=== PATIENT | female | born 1980 | race Caucasian/White ===

== ENCOUNTER 2016-08-25 02:46 | Inpatient (IN) | payer OTHER ==
[~2016-08-25] VITALS: Ht 180.3 cm; Wt 65.6 kg
[2016-08-25 04:35] VITALS: Ht 180.3 cm; Wt 65.6 kg
[2016-08-25 04:43] VITALS: BP 134/92; RESP 20
[2016-08-25] MEDS ORDERED: morphine 2 MG INJ IV PRN (05:30)
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
[2016-08-25] MEDS ORDERED: METOCLOPRAMIDE 10 MG INJ IV PRN (06:30)
[2016-08-25] MEDS ORDERED: HYDROmorphONE 1 MG/ML SYG IV PRN (06:30)
[2016-08-25] MEDS ORDERED: NACL 0.9% 3 ML SYG IV SCH ×2 (06:30)
[2016-08-25 08:05] LABS: ADD SCAN DIFF NO
[2016-08-25 08:11] LABS: BASOPHIL # 0.1 10^3/ul (0.0-0.1); BASOPHILS % 0.9 % (0.0-2.0); EOSINOPHILS # 0.2 10^3/ul (0.0-0.5); EOSINOPHILS % 3.6 % (0.0-7.0); HEMATOCRIT 39.3 % (37.0-47.0); HEMOGLOBIN 12.7 g/dl (12.0-16.0); LYMPHOCYTES # 2.1 10^3/ul (0.8-2.9); LYMPHOCYTES % 34.9 % (15.0-51.0); MEAN CORPUSCULAR HEMOGLOBIN 29.9 pg (29.0-33.0); MEAN CORPUSCULAR HGB CONC 32.3 g/dl (32.0-37.0); MEAN CORPUSCULAR VOLUME 92.5 fl (82.0-101.0); MEAN PLATELET VOLUME 8.7 fl (7.4-10.4); MONOCYTE # 0.7 10^3/ul (0.3-0.9); MONOCYTES % 12.3 % (0.0-11.0); NEUTROPHIL # 2.8 10^3/ul (1.6-7.5); PLATELET COUNT 278 10^3/UL (140-415); RED BLOOD COUNT 4.25 10^6/ul (4.20-5.40); RED CELL DISTRIBUTION WIDTH 12.9 % (11.5-14.5); WHITE BLOOD COUNT 5.9 10^3/ul (4.8-10.8)
[2016-08-25 08:13] VITALS: BP 142/94; RESP 16
[2016-08-25 08:22] LABS: ALBUMIN 3.8 g/dl (3.3-4.9)
[2016-08-25 08:23] LABS: INR 0.96; POTASSIUM 3.6 mmol/L (3.5-5.1); PROTIME 12.8 Sec (12.2-14.2)
[2016-08-25 08:25] LABS: ALBUMIN/GLOBULIN RATIO 1.46; BILIRUBIN,INDIRECT 0.2 mg/dl (0-1.1); BILIRUBIN,TOTAL 0.2 mg/dl (0.2-1.3); CREATININE 0.7 mg/dl (0.44-1.00); TOTAL PROTEIN 6.4 g/dl (6.1-8.1)
[2016-08-25 08:26] LABS: CALCIUM 8.6 mg/dl (8.4-10.2)
[2016-08-25] MEDS ORDERED: FAMOTIDINE 20 MG INJ IV SCH (09:00)
[2016-08-25] MEDS: morphine 4 MG/ML VIAL IV PRN ×2 (11:19→15:48)
--- NOTE | 2016-08-25 13:09 | PDOCDIS ---
Discharge Instructions DIAGNOSIS Discharge Diagnosis: rib trauma CONDITION Patient Condition: Good HOME CARE INSTRUCTIONS: Diet Instructions: Regular ACTIVITY: Activity Restrictions: Slowly Increase Activity FOLLOW UP/APPOINTMENTS Appointments primary care SCHOOL/WORK RELEASE May return to School/Work on: Aug 30, 2016 JHONY JOHNSTON MD, [facility] Aug 25, 2016 13:09
== END 2016-08-25 17:15 | disposition home or self-care (01) | DRG 816 ==
LOC: MS1 04:20
PROVIDERS: ADMIT Family Medicine; ATTEND Family Medicine
DX: S36.031A Moderate laceration of spleen, initial encounter (principal); F17.200 Nicotine dependence, unspecified, uncomplicated; W10.9XXA Fall (on) (from) unspecified stairs and steps, initial encounter; Y92.009 Unspecified place in unspecified non-institutional (private) residence as the place of occurrence of the external cause
CPT/HCPCS: 80053; 85025; 85610; 86850; 86900; 86901; J2270

== ENCOUNTER 2016-09-27 03:28 | Inpatient (IN) | payer OTHER ==
[~2016-09-27] VITALS: Ht 180.3 cm; Wt 80.4 kg
[2016-09-27 05:47] VITALS: BP 121/69; RESP 18
[2016-09-27] MEDS ORDERED: ACETAMINOPHEN 325 MG TAB PO PRN ×2 (06:30→08:00)
[2016-09-27 06:34] VITALS: Ht 180.3 cm; Wt 80.4 kg
[2016-09-27 07:52] VITALS: BP 117/66; RESP 20
[2016-09-27] MEDS ORDERED: NACL 0.9% 3 ML SYG IV SCH (08:00)
[2016-09-27] MEDS ORDERED: METOCLOPRAMIDE 10 MG INJ IV PRN (08:00)
[2016-09-27] MEDS ORDERED: HYDROCODONE/APAP (5/325) TAB PO PRN (08:00)
--- NOTE | 2016-09-27 08:09 | HP ---
Date/Time of Note Date/Time of Note DATE: 09/27/16 TIME: 07:40 Assessment/Plan Lines/Catheters IV Catheter Type (from [facility]rsg): Saline Lock Assessment/Plan Assessment/Plan 1) Pneumonia, Community Acquired - ADMIT to floor - IV Antibiotics - Incentive Spirometer - DuoNeb Treatments every 4 hours - Activity as Tolerated HPI/ROS Admit Date/Time Admit Date/Time Sep 27, 2016 at 05:34 Hx of Present Illness Transfer from [place] due to Insurance reasons. ROS General: Admits: Denies: Fever, Chills, Poor Appetite, Generalized Body Aches Eyes: Admits: Denies: Blurry Vision, Double Vision HENT: Admits: Denies: Ear Pain/Pressure, Runny/Stuffy Nose, Sore Throat Cardiovascular: Admits: Denies: Chest Pain, Palpitations, Leg Swelling Pulmonary: Admits: Denies: Cough, Wheeze, Shortness of Breath Gastrointestinal: Admits: Denies: Abdominal Pain, Nausea, Vomiting, Diarrhea, Blood in Stool, Black-Colored Stool Urogenital: Admits: Denies: Burning with Urination, Urinary Frequency, Blood in Urine Musculoskeletal: Admits: Denies: Joint Pain, Joint Swelling, Muscle Pain Neurological: Admits: Denies: Headache, Dizziness, Numbness, Tingling, Shooting Pains Integumentary: Admits: Denies: Rash, Itch Endocrine: Admits: Denies: Excessive Thirst, Excessive Hunger, Intolerant to Cold , Intolerant to Heat Psychiatric: Admits: Denies: Anxiety, Depression PMH/Family/Social Social History Smoking Status: Current some day smoker Exam/Review of Systems Vital Signs Vitals Vital Signs Date Time Temp Pulse Resp B/P Pulse Ox O2 Delivery O2 Flow Rate FiO2 09/27/16 05:47 98.3 81 18 121/69 96 Exam Exam General: Eyes: Sclera White, EOMI HENT: Normocephalic/Atraumatic, External Ears/Nose Normal, Moist Mucus Membranes Neck: Supple, Trachea Midline Cardiovascular: Normal Rate, Regular Rhythm, Normal S1 and S2, No Murmur, No Extra Sounds. Radial pulse +2/4. No pedal Edema. Pulmonary: Clear to Auscultation Bilaterally, Normal Respiratory Effort, No Rales, Rhonchi or Wheezes Gastrointestinal: Normoactive Bowel Sounds, Soft, Non-Tender/Non-Distended, No Hepatosplenomegaly Appreciated, No Pulsatile Masses Urogenital: Deferred Musculoskeletal: Normal Muscle Bulk and Tone Neurological: CN II - XII Grossly Intact, Non-Focal, Speech Normal Integumentary: Normal Moisture and Temperature, Good Turgor, No Jaundice, No Rash Lymphatic: No Cervical Lymphadenopathy Psychiatric: Appropriate Mood and Affect, Good Eye Contact Medications Medications Current Medications Acetaminophen (Tylenol Tab) 650 mg Q4H PRN PO PAIN AND OR ELEVATED TEMP; Start 09/27/16 at 06:30 Ondansetron HCl (Zofran Inj) 4 mg Q6H PRN IV NAUSEA AND/OR VOMITING; Start at 06:30 ROBEL ROBLES DO Sep 27, 2016 08:09
[2016-09-27 08:20] LABS: ADD SCAN DIFF NO
[2016-09-27 08:42] LABS: BASOPHILS % 0.3 % (0.0-2.0); EOSINOPHILS # 0.3 10^3/ul (0.0-0.5); EOSINOPHILS % 2.5 % (0.0-7.0); HEMATOCRIT 33.5 % (37.0-47.0); HEMOGLOBIN 11.2 g/dl (12.0-16.0); LYMPHOCYTES # 1.8 10^3/ul (0.8-2.9); LYMPHOCYTES % 18.1 % (15.0-51.0); MEAN CORPUSCULAR HEMOGLOBIN 30.3 pg (29.0-33.0); MEAN CORPUSCULAR HGB CONC 33.4 g/dl (32.0-37.0); MEAN CORPUSCULAR VOLUME 90.5 fl (82.0-101.0); MEAN PLATELET VOLUME 8.6 fl (7.4-10.4); MONOCYTES % 10.4 % (0.0-11.0); NEUTROPHIL # 6.7 10^3/ul (1.6-7.5); NEUTROPHILS % 68.1 % (39.0-77.0); PLATELET COUNT 309 10^3/UL (140-415); RED CELL DISTRIBUTION WIDTH 12.8 % (11.5-14.5); WHITE BLOOD COUNT 9.8 10^3/ul (4.8-10.8)
[2016-09-27] MEDS: ALBUTEROL/IPRATROPIUM (NEB) 3 ML AMP NEB SCH ×4 (08:48→20:20)
[2016-09-27 08:58] LABS: ALBUMIN 3.1 g/dl (3.3-4.9); ALBUMIN/GLOBULIN RATIO 1.1; CALCIUM 8.2 mg/dl (8.4-10.2); CREATININE 0.64 mg/dl (0.44-1.00); POTASSIUM 3.4 mmol/L (3.5-5.1); TOTAL PROTEIN 5.9 g/dl (6.1-8.1)
[2016-09-27] MEDS: GUAIFENESIN/CODEINE 5ML CUP PO SCH ×4 (09:01→20:45)
[2016-09-27] MEDS: FAMOTIDINE 20 MG TAB PO SCH ×2 (09:01→20:44)
[2016-09-27] MEDS: CEFTRIAXONE 1 GM/50 ML (PMX) 50 ML IVPB SCH (09:02)
[2016-09-27] MEDS: AZITHROMYCIN 500MG/NS (PMX) 250 ML IV SCH (09:02)
[2016-09-27 09:25] LABS: ALBUMIN 3.1 g/dl (3.3-4.9)
[2016-09-27 09:27] LABS: BILIRUBIN,INDIRECT 0.2 mg/dl (0-1.1); BILIRUBIN,TOTAL 0.2 mg/dl (0.2-1.3); TOTAL PROTEIN 5.9 g/dl (6.1-8.1)
[2016-09-27] MEDS: HYDROCODONE/APAP (5/325) TAB PO PRN ×2 (12:00→19:47)
[2016-09-27 19:00] VITALS: BP 138/81; RESP 20
[2016-09-27 22:44] LABS: BARBITURATES Negative (NEGATIVE); BENZODIAZEPINES Negative (NEGATIVE); CANNABINOIDS Negative (NEGATIVE); COCAINE Negative (NEGATIVE); OPIATES Positive (NEGATIVE)
[2016-09-28] MEDS: GUAIFENESIN/CODEINE 5ML CUP PO SCH ×6 (01:03→22:01)
[2016-09-28] MEDS: ALBUTEROL/IPRATROPIUM (NEB) 3 ML AMP NEB SCH ×6 (01:36→21:00)
[2016-09-28] MEDS: HYDROCODONE/APAP (5/325) TAB PO PRN ×2 (05:44→20:15)
[2016-09-28 06:09] LABS: ADD SCAN DIFF NO
[2016-09-28 06:28] LABS: CALCIUM 8.7 mg/dl (8.4-10.2); CREATININE 0.59 mg/dl (0.44-1.00); POTASSIUM 4.2 mmol/L (3.5-5.1)
[2016-09-28 06:38] LABS: BASOPHILS % 0.3 % (0.0-2.0); EOSINOPHILS # 0.3 10^3/ul (0.0-0.5); EOSINOPHILS % 3.4 % (0.0-7.0); HEMOGLOBIN 11.1 g/dl (12.0-16.0); LYMPHOCYTES # 1.6 10^3/ul (0.8-2.9); LYMPHOCYTES % 22.1 % (15.0-51.0); MEAN CORPUSCULAR HEMOGLOBIN 30.1 pg (29.0-33.0); MEAN CORPUSCULAR HGB CONC 32.6 g/dl (32.0-37.0); MEAN CORPUSCULAR VOLUME 92.1 fl (82.0-101.0); MEAN PLATELET VOLUME 8.7 fl (7.4-10.4); MONOCYTE # 0.7 10^3/ul (0.3-0.9); MONOCYTES % 9.3 % (0.0-11.0); NEUTROPHIL # 4.7 10^3/ul (1.6-7.5); NEUTROPHILS % 64.4 % (39.0-77.0); PLATELET COUNT 353 10^3/UL (140-415); RED BLOOD COUNT 3.69 10^6/ul (4.20-5.40); RED CELL DISTRIBUTION WIDTH 13.1 % (11.5-14.5); WHITE BLOOD COUNT 7.3 10^3/ul (4.8-10.8)
[2016-09-28 07:26] VITALS: BP 123/73; RESP 18
[2016-09-28 07:58] LABS: CHOL/HDL RATIO 2.8 RATIO
[2016-09-28] MEDS: AZITHROMYCIN 500MG/NS (PMX) 250 ML IV SCH (08:12)
[2016-09-28] MEDS: FAMOTIDINE 20 MG TAB PO SCH ×2 (08:12→20:15)
[2016-09-28] MEDS: CEFTRIAXONE 1 GM/50 ML (PMX) 50 ML IVPB SCH (08:12)
[2016-09-28 08:21] LABS: THYROID STIMULATING HORMONE 2.81 MIU/L (0.465-4.680)
--- NOTE | 2016-09-28 08:50 | RADRPT ---
PROCEDURE: XR Chest. CLINICAL INDICATION: Infiltrates TECHNIQUE: Chest AP portable. COMPARISON: No comparison available. FINDINGS: The mediastinal structures are unremarkable. The heart is normal in size and configuration. The pu lmonary vascularity is normal. There are normal lung volumes. There is a mild right perihilar patc hy consolidation. The pleural spaces are unremarkable. The axial skeleton is unremarkable. IMPRESSION: Mild right perihilar patchy consolidation (query pneumonia) RPTAT: HGDB .Basil Gonzales MD, Date Time Electronically viewed and signed by .Basil Gonzales MD, on 09/28/2016 08:49 .B/
--- NOTE | 2016-09-28 10:04 | PN ---
Date/Time of Note Date/Time of Note DATE: 09/28/16 TIME: 10:01 Assessment/Plan VTE Prophylaxis VTE Prophylaxis Intervention: SCD's Lines/Catheters IV Catheter Type (from [facility]): Saline Lock Assessment/Plan Chief Complaint/Hosp Course Assessment and plan 1. Community-acquired pneumonia. Continue antibiotics. Encourage incentive spirometer. Check sputum culture. Antitussives for cough. 2. Bronchospasm with suspect early COPD. Patient with noted history of cigarette smoking half a pack per day for 10 years duration. Continue on bronchodilators. Start on steroid. Noted with wheezing today. Await for clinical improvement. Smoking cessation advised 3. History of cigarette smoking. Cessation advised. DVT prophylaxis: SCDs Disposition and plan: Check sputum culture. Continue antibiotics. Continue on bronchodilators. Await for clinical improvement of pneumonia. Discussed plan of care with Dr. Ceja Problems: Subjective 24 Hr Interval Summary Free Text/Dictation Reports little bit worse breathing and also some wheezing. States she has some productive cough. Exam/Review of Systems Vital Signs Vitals Vital Signs Date Time Temp Pulse Resp B/P Pulse Ox O2 Delivery O2 Flow Rate FiO2 09/28/16 08:05 78 20 97 21 09/28/16 07:26 98.2 123/73 Intake and Output 09/27/16 09/27/16 09/28/16 15:00 23:00 07:00 Intake Total 300 ml 1440 ml 1180 ml Output Total 0 ml 600 ml Balance 300 ml 1440 ml 580 ml Exam Constitutional: alert, oriented Psych: nl mood/affect Head: normocephalic Eyes: nl conjunctiva Neck: non-tender, supple Respiratory: congested cough, wheezing Cardiovascular: regular rate and rhythm Gastrointestinal: non-tender, soft Musculoskeletal: nl extremities to inspection Neurological: [employer] II-XII intact, nl mental status, nl speech Skin: nl turgor Results Result Diagram: 09/28/16 0525 09/28/16 0525 Results 24 hrs Laboratory Tests Test 09/27/16 21:30 09/28/16 05:25 Urine Test NEGATIVE Urine Opiates Screen Positive Urine Barbiturates Negative Urine Amphetamines Screen Negative Urine Benzodiazepines Screen Negative Urine Cocaine Screen Negative Urine Cannabinoids Negative White Blood Count 7.3 # Red Blood Count 3.69 L Hemoglobin 11.1 L Hematocrit 34.0 L Mean Corpuscular Volume 92.1 Mean Corpuscular Hemoglobin 30.1 Mean Corpuscular Hemoglobin Concent 32.6 Red Cell Distribution Width 13.1 Platelet Count 353 Mean Platelet Volume 8.7 Neutrophils % 64.4 Lymphocytes % 22.1 Monocytes % 9.3 Eosinophils % 3.4 Basophils % 0.3 Nucleated Red Blood Cells % 0.0 Neutrophils # 4.7 Lymphocytes # 1.6 Monocytes # 0.7 Eosinophils # 0.3 Basophils # 0.0 Nucleated Red Blood Cells # 0.0 Sodium Level 137 Potassium Level 4.2 Chloride Level 104 Carbon Dioxide Level 28 Anion Gap 9 Blood Urea Nitrogen 7 Creatinine 0.59 Glucose Level 101 Hemoglobin A1c 5.2 Calcium Level 8.7 Phosphorus Level 4.0 Magnesium Level 2.0 Triglycerides Level 48 Cholesterol Level 83 L LDL Cholesterol, Calculated 44 HDL Cholesterol 29 L Cholesterol/HDL Ratio 2.8 Thyroid Stimulating Hormone (TSH) 2.810 Free Thyroxine 1.00 Medications Medications Current Medications Ondansetron HCl 4 mg 4 mg Q6H PRN IV NAUSEA AND/OR VOMITING; Start 09/27/16 at 06:30 Ceftriaxone Sodium 50 ml @ 100 mls/hr Q24H IVPB Last administered on 08:12; Admin Dose 100 MLS/HR; Start 09/27/16 at 08:00 Azithromycin (Zithromax 500mg/ NS (Pmx)) 250 ml @ 250 mls/hr Q24H IV Last administered on 09/28/16 08:12; Admin Dose 250 MLS/HR; Start 09/27/16 at 08:00 Ondansetron HCl (Zofran Tab) 4 mg Q6H PRN PO NAUSEA AND/OR VOMITING; Start at 08:00 Metoclopramide HCl (Reglan) 10 mg Q6H PRN IV NAUSEA AND/OR VOMITING; Start at 08:00 Acetaminophen (Tylenol Tab) 650 mg Q6H PRN PO PAIN LEVEL 1-3 OR FEVER; Start at 08:00 Acetaminophen/ Hydrocodone Bitart ([place] (5/325)) 1 tab Q6H PRN PO MODERATE PAIN LEVEL 4-6; Start 09/27/16 at 08:00 Acetaminophen/ Hydrocodone Bitart ([place] (5/325)) 2 tab Q6H PRN PO SEVERE PAIN LEVEL 7-10 Last administered on 09/28/16 05:44; Admin Dose 2 TAB; Start at 08:00 Famotidine (Pepcid) 20 mg Q12 PO Last administered on 09/28/16 08:12; Admin Dose 20 MG; Start 09/27/16 at 09:00 Guaifenesin/ Codeine Phosphate (Robitussin Ac Liquid Cup) 10 ml Q4 PO Last administered on 09/28/16 08:15; Admin Dose 10 ML; Start 09/27/16 at 09:00; Stop 09/28/16 at 21:01 Guaifenesin/ Codeine Phosphate (Robitussin Ac Liquid Cup) 10 ml Q4H PRN PO COUGH; Start 09/28/16 at 22:00 Salmeterol Xinafoate/ Fluticasone (Advair 250/50 Diskus) 1 inh BID INH ; Start 09/28/16 at 10:30 Ketorolac Tromethamine (Toradol) 30 mg Q6 IV ; Start 09/28/16 at 12:00; Stop at 11:59 Morphine Sulfate (morphine) 2 mg Q4H PRN IV pain; Start 09/28/16 at 10:00 Methylprednisolone Sodium Succinate 40 mg 40 mg Q8 IV ; Start 09/28/16 at 14:00 Sodium Chloride (NS) 1,000 ml @ 75 mls/hr [id number] IV ; Start 09/28/16 at 10:00 DELORIS GONZALEZ Sep 28, 2016 10:04
[2016-09-28] MEDS: SALMETEROL/FLUTICASONE 250/50 INHA INH SCH ×2 (10:40→20:16)
[2016-09-28] MEDS: SOD CHLORIDE 0.9% 1,000 ML IV SCH ×2 (10:41→23:57)
[2016-09-28] MEDS: KETOROLAC 30 MG INJ IV SCH ×3 (12:39→23:57)
[2016-09-28] MEDS: ACETYLCYSTEINE 20% 4 ML VIAL NEB SCH ×3 (12:49→21:01)
[2016-09-28] MEDS: METHYLPREDNISOLONE 40 MG INJ IV SCH ×2 (14:57→22:01)
[2016-09-28 20:19] VITALS: BP 130/73; RESP 19
[2016-09-28] MEDS ORDERED: GUAIFENESIN/CODEINE 5ML CUP PO PRN (22:00)
[2016-09-29] MEDS: ACETYLCYSTEINE 20% 4 ML VIAL NEB SCH ×7 (01:00→21:16)
[2016-09-29] MEDS: ALBUTEROL/IPRATROPIUM (NEB) 3 ML AMP NEB SCH ×6 (01:55→21:18)
[2016-09-29] MEDS: KETOROLAC 30 MG INJ IV SCH ×3 (05:39→18:27)
[2016-09-29] MEDS: METHYLPREDNISOLONE 40 MG INJ IV SCH ×3 (05:39→21:52)
[2016-09-29] MEDS: ONDANSETRON 4 MG INJ IV PRN (05:39)
[2016-09-29 07:46] VITALS: BP 119/68; RESP 18
[2016-09-29] MEDS: morphine 2 MG INJ IV PRN ×4 (08:38→21:51)
[2016-09-29] MEDS: SALMETEROL/FLUTICASONE 250/50 INHA INH SCH ×2 (08:40→20:27)
[2016-09-29] MEDS: AZITHROMYCIN 500MG/NS (PMX) 250 ML IV SCH (08:40)
[2016-09-29] MEDS: FAMOTIDINE 20 MG TAB PO SCH ×2 (08:40→20:27)
[2016-09-29] MEDS: CEFTRIAXONE 1 GM/50 ML (PMX) 50 ML IVPB SCH (08:40)
--- NOTE | 2016-09-29 10:05 | PN ---
Date/Time of Note Date/Time of Note DATE: 09/29/16 TIME: 09:59 Assessment/Plan VTE Prophylaxis VTE Prophylaxis Intervention: SCD's Lines/Catheters [facility] Saline Lock Assessment/Plan Chief Complaint/Hosp Course Assessment and plan 1. Community-acquired pneumonia. Continue antibiotics. Encourage incentive spirometer. sputum culture pending. Antitussives for cough. 2. Bronchospasm with suspect early COPD. Patient with noted history of cigarette smoking half a pack per day for 10 years duration. Continue on bronchodilators. Continue steroid for now.. Smoking cessation was advised. Still with some shortness of breath. Rosin Barrel Filler consulted 3. History of cigarette smoking. Cessation advised. DVT prophylaxis: SCDs Disposition and plan: We will get pulmonology consultation. Continue with breathing treatments. Antitussives adjusted. Await for clinical improvement Discussed plan of care with Dr. Ceja Problems: Subjective 24 Hr Interval Summary Free Text/Dictation Patient still reports having moderate cough. Reports having pain on chest, likely pleuritic Exam/Review of Systems Vital Signs Vitals Vital Signs Date Time Temp Pulse Resp B/P Pulse Ox O2 Delivery O2 Flow Rate FiO2 09/29/16 08:15 103 16 96 21 09/29/16 07:46 98.7 119/68 Intake and Output 09/28/16 09/28/16 09/29/16 15:00 23:00 07:00 Intake Total 2040 ml 850 ml Output Total 2800 ml Balance -760 ml 850 ml Exam Constitutional: alert, oriented Psych: nl mood/affect Head: normocephalic Neck: non-tender, supple, No jvd Respiratory: congested cough, wheezing (little) Cardiovascular: regular rate and rhythm Gastrointestinal: non-tender, soft Musculoskeletal: nl extremities to inspection Neurological: WHISTLE [place]K II-XII intact, nl mental status, nl speech Skin: nl turgor, No rash or lesions Results Result Diagram: 09/28/1652409/28/16524 Medications Medications Current Medications Ondansetron HCl 4 mg 4 mg Q6H PRN IV NAUSEA AND/OR VOMITING Last administered on 09/29/16 05:39; Admin Dose 4 MG; Start 09/27/16 at 06:30 Ceftriaxone Sodium 50 ml @ 100 mls/hr Q24H IVPB Last administered on 08:40; Admin Dose 100 MLS/HR; Start 09/27/16 at 08:00 Azithromycin (Zithromax 500mg/ NS (Pmx)) 250 ml @ 250 mls/hr Q24H IV Last administered on 09/29/16 08:40; Admin Dose 250 MLS/HR; Start 09/27/16 at 08:00 Ondansetron HCl (Zofran Tab) 4 mg Q6H PRN PO NAUSEA AND/OR VOMITING; Start at 08:00 Metoclopramide HCl (Reglan) 10 mg Q6H PRN IV NAUSEA AND/OR VOMITING; Start at 08:00 Acetaminophen (Tylenol Tab) 650 mg Q6H PRN PO PAIN LEVEL 1-3 OR FEVER; Start at 08:00 Acetaminophen/ Hydrocodone Bitart ([place] (5/325)) 1 tab Q6H PRN PO MODERATE PAIN LEVEL 4-6; Start 09/27/16 at 08:00 Acetaminophen/ Hydrocodone Bitart ([place] (5/325)) 2 tab Q6H PRN PO SEVERE PAIN LEVEL 7-10 Last administered on 09/28/16 20:15; Admin Dose 2 TAB; Start at 08:00 Famotidine (Pepcid) 20 mg Q12 PO Last administered on 09/29/16 08:40; Admin Dose 20 MG; Start 09/27/16 at 09:00 Guaifenesin/ Codeine Phosphate (Robitussin Ac Liquid Cup) 10 ml Q4H PRN PO COUGH; Start 09/28/16 at 22:00 Salmeterol Xinafoate/ Fluticasone (Advair 250/50 Diskus) 1 inh BID INH Last administered on 09/29/16 08:40; Admin Dose 1 INH; Start 09/28/16 at 10:30 Ketorolac Tromethamine (Toradol) 30 mg Q6 IV Last administered on 09/29/16 05: 39; Admin Dose 30 MG; Start 09/28/16 at 12:00; Stop 10/01/16 at 11:59 Morphine Sulfate (morphine) 2 mg Q4H PRN IV pain Last administered on 08:38; Admin Dose 2 MG; Start 09/28/16 at 10:00 Methylprednisolone Sodium Succinate 40 mg 40 mg Q8 IV Last administered on 09/29 05:39; Admin Dose 40 MG; Start 09/28/16 at 14:00 Sodium Chloride (NS) 1,000 ml @ 75 mls/hr [id number] IV Last administered on 09/28 23:57; Admin Dose 75 MLS/HR; Start 09/28/16 at 10:00 Benzonatate (Tessalon) 200 mg TID PO ; Start 09/29/16 at 13:00 DELORIS GONZALEZ Sep 29, 2016 10:05
[2016-09-29] MEDS ORDERED: MAGNESIUM HYDROXIDE 30ML CUP PO PRN (10:30)
[2016-09-29] MEDS: SENNA TAB PO SCH (10:31)
[2016-09-29] MEDS: HYDROCODONE/APAP (5/325) TAB PO PRN ×2 (10:35→20:27)
[2016-09-29] MEDS: BENZONATATE 100 MG CAP PO SCH ×2 (12:21→20:27)
[2016-09-29] MEDS: SOD CHLORIDE 0.9% 1,000 ML IV SCH ×2 (12:40→15:18)
--- NOTE | 2016-09-29 17:04 | CONS ---
DATE OF ADMISSION: 09/27/2016 DATE OF CONSULTATION: 09/29/2016 TYPE OF CONSULTATION: Pulmonary REASON FOR CONSULT: Shortness of breath. Thank you, Dr. Long, for this consultation. HISTORY OF PRESENT ILLNESS: This is a pleasant 36-year-old lady with history of lupus, comes in wit h several week history of increasing cough, shortness of breath, congestion, failed several rounds o f outpatient antibiotics. She states she has a history of recurrent and prolonged lung infections r equiring long courses of antibiotics. No history of lung disease from her lupus disorder. She has a positive tobacco history of half pack per day x10 years, other than that, no significant past medi raul history. PAST MEDICAL HISTORY: As above, includes lupus erythematosus and recurrent bronchitis. MEDICATIONS: Per chart. ALLERGIES: NONE. SOCIAL HISTORY: Positive tobacco history. Occasional alcohol. No history of drug use. FAMILY HISTORY: Noncontributory. REVIEW OF SYSTEMS: A 12-point review of systems was negative other than that mentioned above. PHYSICAL EXAMINATION: GENERAL: Well-nourished, well-developed lady, appears comfortable at rest, no acute distress. VITAL SIGNS: Currently afebrile, pulse is 100, blood pressure 119/68, O2 saturation 97% on room air . NECK: Supple. No JVD or lymphadenopathy. CARDIAC: S1, S2, no added sounds or murmurs. CHEST: Diminished air entry bilaterally. ABDOMEN: Soft, nontender. No guarding or rebound. EXTREMITIES: No cyanosis, clubbing, edema. NEUROLOGIC: Generalized weakness. LABORATORY DATA: White count 10.7, hemoglobin 11.1, platelets of 353. BUN 7, creatinine 0.59. Chest x-ray was reviewed, shows right perihilar consolidation. IMPRESSION: 1. Probable community-acquired pneumonia. 2. History of lupus. 3. 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 RECOMMENDATIONS: 1. Continue steroids. 2. Check IgE and IgE specific aspergillosis. 3. Continue current antibiotics. 4. Continue DVT and GI prophylaxis. Dictated By: JHONY LUNA/ELIER Conf#: [id number] DID#: [id number]
[2016-09-29 19:00] VITALS: BP 134/74; RESP 20
[2016-09-30] MEDS: KETOROLAC 30 MG INJ IV SCH ×5 (00:09→23:53)
[2016-09-30] MEDS: ACETYLCYSTEINE 20% 4 ML VIAL NEB SCH ×6 (01:24→20:12)
[2016-09-30] MEDS: ALBUTEROL/IPRATROPIUM (NEB) 3 ML AMP NEB SCH ×3 (01:24→09:00)
[2016-09-30] MEDS: morphine 2 MG INJ IV PRN ×4 (02:16→21:06)
[2016-09-30] MEDS: SOD CHLORIDE 0.9% 1,000 ML IV SCH ×2 (03:24→18:53)
[2016-09-30] MEDS: METHYLPREDNISOLONE 40 MG INJ IV SCH (05:42)
[2016-09-30] MEDS: ONDANSETRON 4 MG INJ IV PRN (05:49)
[2016-09-30] MEDS: HYDROCODONE/APAP (5/325) TAB PO PRN ×3 (05:49→18:53)
[2016-09-30 07:00] LABS: ADD SCAN DIFF NO
[2016-09-30 07:12] LABS: BASOPHILS % 0.1 % (0.0-2.0); HEMATOCRIT 35.2 % (37.0-47.0); HEMOGLOBIN 11.4 g/dl (12.0-16.0); LYMPHOCYTES # 0.9 10^3/ul (0.8-2.9); LYMPHOCYTES % 4.8 % (15.0-51.0); MEAN CORPUSCULAR HEMOGLOBIN 29.9 pg (29.0-33.0); MEAN CORPUSCULAR HGB CONC 32.4 g/dl (32.0-37.0); MEAN CORPUSCULAR VOLUME 92.4 fl (82.0-101.0); MEAN PLATELET VOLUME 8.6 fl (7.4-10.4); MONOCYTE # 0.8 10^3/ul (0.3-0.9); MONOCYTES % 4.3 % (0.0-11.0); NEUTROPHILS % 89.5 % (39.0-77.0); PLATELET COUNT 468 10^3/UL (140-415); RED BLOOD COUNT 3.81 10^6/ul (4.20-5.40); RED CELL DISTRIBUTION WIDTH 13.2 % (11.5-14.5)
[2016-09-30 07:24] VITALS: BP 127/72; RESP 20
[2016-09-30 07:26] LABS: POTASSIUM 4.6 mmol/L (3.5-5.1)
[2016-09-30 07:28] LABS: CREATININE 0.53 mg/dl (0.44-1.00)
[2016-09-30 07:29] LABS: CALCIUM 9.1 mg/dl (8.4-10.2)
[2016-09-30] MEDS: CEFTRIAXONE 1 GM/50 ML (PMX) 50 ML IVPB SCH (07:47)
[2016-09-30] MEDS: FAMOTIDINE 20 MG TAB PO SCH ×2 (08:28→20:48)
[2016-09-30] MEDS: SALMETEROL/FLUTICASONE 250/50 INHA INH SCH ×2 (08:28→20:48)
[2016-09-30] MEDS: AZITHROMYCIN 500MG/NS (PMX) 250 ML IV SCH (08:28)
[2016-09-30] MEDS: SENNA TAB PO SCH (08:28)
[2016-09-30] MEDS: BENZONATATE 100 MG CAP PO SCH ×3 (11:19→20:48)
--- NOTE | 2016-09-30 12:59 | CONS ---
Date/Time of Note Date/Time of Note DATE: 09/30/16 TIME: 12:58 Consult Date/Type/Reason Admit Date/Time Sep 27, 2016 at 05:34 Initial Consult Date Type of Consultation: pulmonary Subjective Patient feels a little better today less short of breath Objective Vital Signs Date Time Temp Pulse Resp B/P Pulse Ox O2 Delivery O2 Flow Rate FiO2 09/30/16 07:24 98.5 103 20 127/72 98 09/30/16 01:36 21 Intake and Output 09/29/16 09/29/16 09/30/16 15:00 23:00 07:00 Intake Total 2945 ml 1445 ml Balance 2945 ml 1445 ml Exam PHYSICAL EXAMINATION: GENERAL: Well-nourished, well-developed lady, appears comfortable at rest, no acute distress. VITAL SIGNS: NECK: Supple. No JVD or lymphadenopathy. CARDIAC: S1, S2, no added sounds or murmurs. CHEST: Diminished air entry bilaterally. ABDOMEN: Soft, nontender. No guarding or rebound. EXTREMITIES: No cyanosis, clubbing, edema. NEUROLOGIC: Generalized weakness. Results/Medications Result Diagram: 09/30/16 0610 09/30/16 0610 Results 24 hrs Laboratory Tests Test 09/30/16 06:10 White Blood Count 19.0 #H Red Blood Count 3.81 L Hemoglobin 11.4 L Hematocrit 35.2 L Mean Corpuscular Volume 92.4 Mean Corpuscular Hemoglobin 29.9 Mean Corpuscular Hemoglobin Concent 32.4 Red Cell Distribution Width 13.2 Platelet Count 468 #H Mean Platelet Volume 8.6 Neutrophils % 89.5 H Lymphocytes % 4.8 L Monocytes % 4.3 Eosinophils % 0.0 Basophils % 0.1 Nucleated Red Blood Cells % 0.0 Neutrophils # 17.0 H Lymphocytes # 0.9 Monocytes # 0.8 Eosinophils # 0.0 Basophils # 0.0 Nucleated Red Blood Cells # 0.0 Sodium Level 139 Potassium Level 4.6 Chloride Level 102 Carbon Dioxide Level 28 Anion Gap 14 Blood Urea Nitrogen 8 Creatinine 0.53 Glucose Level 128 Calcium Level 9.1 Medications Current Medications Ondansetron HCl 4 mg 4 mg Q6H PRN IV NAUSEA AND/OR VOMITING Last administered on 09/30/16t 05:49; Admin Dose 4 MG; Start 09/27/16 at 06:30 Ceftriaxone Sodium 50 ml @ 100 mls/hr Q24H IVPB Last administered on 07:47; Admin Dose 100 MLS/HR; Start 09/27/16 at 08:00 Azithromycin (Zithromax 500mg/ NS (Pmx)) 250 ml @ 250 mls/hr Q24H IV Last administered on 09/30/16 08:28; Admin Dose 250 MLS/HR; Start 09/27/16 at 08:00 Ondansetron HCl (Zofran Tab) 4 mg Q6H PRN PO NAUSEA AND/OR VOMITING; Start at 08:00 Metoclopramide HCl (Reglan) 10 mg Q6H PRN IV NAUSEA AND/OR VOMITING; Start at 08:00 Acetaminophen (Tylenol Tab) 650 mg Q6H PRN PO PAIN LEVEL 1-3 OR FEVER; Start at 08:00 Acetaminophen/ Hydrocodone Bitart ([place] (5/325)) 1 tab Q6H PRN PO MODERATE PAIN LEVEL 4-6; Start 09/27/16 at 08:00 Acetaminophen/ Hydrocodone Bitart ([place] (5/325)) 2 tab Q6H PRN PO SEVERE PAIN LEVEL 7-10 Last administered on 09/30/16 12:08; Admin Dose 2 TAB; Start at 08:00 Famotidine (Pepcid) 20 mg Q12 PO Last administered on 09/30/16 08:28; Admin Dose 20 MG; Start 09/27/16 at 09:00 Guaifenesin/ Codeine Phosphate (Robitussin Ac Liquid Cup) 10 ml Q4H PRN PO COUGH; Start 09/28/16 at 22:00 Salmeterol Xinafoate/ Fluticasone (Advair 250/50 Diskus) 1 inh BID INH Last administered on 09/30/16 08:28; Admin Dose 1 INH; Start 09/28/16 at 10:30 Ketorolac Tromethamine (Toradol) 30 mg Q6 IV Last administered on 09/30/16 11: 20; Admin Dose 30 MG; Start 09/28/16 at 12:00; Stop 10/01/16 at 11:59 Morphine Sulfate (morphine) 2 mg Q4H PRN IV pain Last administered on 07:48; Admin Dose 2 MG; Start 09/28/16 at 10:00 Methylprednisolone Sodium Succinate 40 mg 40 mg Q8 IV Last administered on 09/30 05:42; Admin Dose 40 MG; Start 09/28/16 at 14:00 Sodium Chloride (NS) 1,000 ml @ 75 mls/hr [id number] IV Last administered on 09/30 03:24; Admin Dose 75 MLS/HR; Start 09/28/16 at 10:00 Benzonatate (Tessalon) 200 mg TID PO Last administered on 09/30/16 11:19; Admin Dose 200 MG; Start 09/29/16 at 13:00 Senna (Senokot) 2 tab DAILY PO Last administered on 09/30/16 08:28; Admin Dose 2 TAB; Start 09/29/16 at 10:30 Magnesium Hydroxide (Milk Of Mag) 30 ml BID PRN PO CONSTIPATION; Start at 10:30 Assessment/Plan Chief Complaint/Hosp Course IMPRESSION: 1. Probable community-acquired pneumonia. 2. History of lupus. 3. 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 RECOMMENDATIONS: 1. Continue steroids. Decrease dose today 2. Check IgE and IgE specific aspergillosis. Results pending 3. Continue current antibiotics. 4. Continue DVT and GI prophylaxis. Anticipate discharge tomorrow Problems: JHONY JOHNSTON MD, [facility] Sep 30, 2016 12:59
[2016-09-30] MEDS: ONDANSETRON 4 MG TAB PO PRN (13:47)
--- NOTE | 2016-09-30 16:08 | PN ---
Date/Time of Note Date/Time of Note DATE: 09/30/16 TIME: 16:06 Assessment/Plan VTE Prophylaxis VTE Prophylaxis Intervention: ambulation Lines/Catheters IV C[facility]ter Type (from [facility]): Peripheral IV Assessment/Plan Chief Complaint/Hosp Course Assessment and plan 1. Community-acquired pneumonia. Continue antibiotics. Encourage incentive spirometer. Noted with normal sputum culture. Follow-up on workup for Aspergillus per delivery room supervisor 2. Bronchospasm. Continue on steroid. Taper per delivery room supervisor. Follow-up recommendations. Appears to be improving 3. History of cigarette smoking. Cessation advised. DVT prophylaxis: SCDs Disposition and plan: Continue with breathing treatments and antibiotic therapy. Slowly improving. Follow-up with delivery room supervisor patient's. Discharge when medically stable Discussed plan of care with Dr. Ceja Problems: Subjective 24 Hr Interval Summary Free Text/Dictation Still with some difficulty breathing but better today. Still reports cough Exam/Review of Systems Vital Signs Vitals Vital Signs Date Time Temp Pulse Resp B/P Pulse Ox O2 Delivery O2 Flow Rate FiO2 09/30/16 07:24 98.5 103 20 127/72 98 09/30/16 01:36 21 Intake and Output 09/29/16 09/29/16 09/30/16 15:00 23:00 07:00 Intake Total 2945 ml 1445 ml Balance 2945 ml 1445 ml Exam Constitutional: alert, oriented Psych: nl mood/affect Head: normocephalic Neck: non-tender, supple Respiratory: congested cough Cardiovascular: other (regular rate tachycardic) Gastrointestinal: non-tender, soft Musculoskeletal: nl extremities to inspection Extremities: normal pulses Neurological: 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 intact, nl mental status, nl speech Skin: nl turgor, No rash or lesions Results Result Diagram: 09/30/16 0610 09/30/16 0610 Results 24 hrs Laboratory Tests Test 09/30/16 06:10 White Blood Count 19.0 #H Red Blood Count 3.81 L Hemoglobin 11.4 L Hematocrit 35.2 L Mean Corpuscular Volume 92.4 Mean Corpuscular Hemoglobin 29.9 Mean Corpuscular Hemoglobin Concent 32.4 Red Cell Distribution Width 13.2 Platelet Count 468 #H Mean Platelet Volume 8.6 Neutrophils % 89.5 H Lymphocytes % 4.8 L Monocytes % 4.3 Eosinophils % 0.0 Basophils % 0.1 Nucleated Red Blood Cells % 0.0 Neutrophils # 17.0 H Lymphocytes # 0.9 Monocytes # 0.8 Eosinophils # 0.0 Basophils # 0.0 Nucleated Red Blood Cells # 0.0 Sodium Level 139 Potassium Level 4.6 Chloride Level 102 Carbon Dioxide Level 28 Anion Gap 14 Blood Urea Nitrogen 8 Creatinine 0.53 Glucose Level 128 Calcium Level 9.1 Medications Medications Current Medications Ondansetron HCl 4 mg 4 mg Q6H PRN IV NAUSEA AND/OR VOMITING Last administered on 09/30/16 05:49; Admin Dose 4 MG; Start 09/27/16 at 06:30 Ceftriaxone Sodium 50 ml @ 100 mls/hr Q24H IVPB Last administered on 07:47; Admin Dose 100 MLS/HR; Start 09/27/16 at 08:00 Azithromycin (Zithromax 500mg/ NS (Pmx)) 250 ml @ 250 mls/hr Q24H IV Last administered on 09/30/16 08:28; Admin Dose 250 MLS/HR; Start 09/27/16 at 08:00 Ondansetron HCl (Zofran Tab) 4 mg Q6H PRN PO NAUSEA AND/OR VOMITING Last administered on 09/30/16 13:47; Admin Dose 4 MG; Start 09/27/16 at 08:00 Metoclopramide HCl (Reglan) 10 mg Q6H PRN IV NAUSEA AND/OR VOMITING; Start at 08:00 Acetaminophen (Tylenol Tab) 650 mg Q6H PRN PO PAIN LEVEL 1-3 OR FEVER; Start at 08:00 Acetaminophen/ Hydrocodone Bitart ([place] (5/325)) 1 tab Q6H PRN PO MODERATE PAIN LEVEL 4-6; Start 09/27/16 at 08:00 Acetaminophen/ Hydrocodone Bitart ([place] (5/325)) 2 tab Q6H PRN PO SEVERE PAIN LEVEL 7-10 Last administered on 09/30/16 12:08; Admin Dose 2 TAB; Start at 08:00 Famotidine (Pepcid) 20 mg Q12 PO Last administered on 09/30/16 08:28; Admin Dose 20 MG; Start 09/27/16 at 09:00 Guaifenesin/ Codeine Phosphate (Robitussin Ac Liquid Cup) 10 ml Q4H PRN PO COUGH; Start 09/28/16 at 22:00 Salmeterol Xinafoate/ Fluticasone (Advair 250/50 Diskus) 1 inh BID INH Last administered on 09/30/16 08:28; Admin Dose 1 INH; Start 09/28/16 at 10:30 Ketorolac Tromethamine (Toradol) 30 mg Q6 IV Last administered on 09/30/16 11: 20; Admin Dose 30 MG; Start 09/28/16 at 12:00; Stop 10/01/16 at 11:59 Morphine Sulfate 2 mg 2 mg Q4H PRN IV pain Last administered on 09/30/16 13:47 ; Admin Dose 2 MG; Start 09/28/16 at 10:00 Sodium Chloride (NS) 1,000 ml @ 75 mls/hr [id number] IV Last administered on 09/30 03:24; Admin Dose 75 MLS/HR; Start 09/28/16 at 10:00 Benzonatate (Tessalon) 200 mg TID PO Last administered on 09/30/16 11:19; Admin Dose 200 MG; Start 09/29/16 at 13:00 Senna (Senokot) 2 tab DAILY PO Last administered on 09/30/16 08:28; Admin Dose 2 TAB; Start 09/29/16 at 10:30 Magnesium Hydroxide (Milk Of Mag) 30 ml BID PRN PO CONSTIPATION; Start at 10:30 Methylprednisolone Sodium Succinate (Solu-Medrol) 40 mg DAILY IV ; Start at 09:00 DELORIS GONZALEZ Sep 30, 2016 16:08
[2016-09-30] MEDS: ALBUTEROL/IPRATROPIUM (NEB) 3 ML AMP NEB PRN ×2 (17:38→20:12)
[2016-09-30 19:27] VITALS: BP 133/84; RESP 16
[2016-10-01] MEDS: ACETYLCYSTEINE 20% 4 ML VIAL NEB SCH ×3 (01:00→08:35)
[2016-10-01] MEDS: KETOROLAC 30 MG INJ IV SCH (06:00)
[2016-10-01] MEDS: HYDROCODONE/APAP (5/325) TAB PO PRN ×2 (06:38→22:20)
[2016-10-01 07:52] VITALS: BP 144/94; RESP 18
[2016-10-01] MEDS: CEFTRIAXONE 1 GM/50 ML (PMX) 50 ML IVPB SCH (07:57)
[2016-10-01] MEDS: SOD CHLORIDE 0.9% 1,000 ML IV SCH ×2 (08:00→23:24)
[2016-10-01] MEDS: SENNA TAB PO SCH (08:28)
[2016-10-01] MEDS: BENZONATATE 100 MG CAP PO SCH ×3 (08:28→22:16)
[2016-10-01] MEDS: METHYLPREDNISOLONE 40 MG INJ IV SCH (08:28)
[2016-10-01] MEDS: FAMOTIDINE 20 MG TAB PO SCH ×2 (08:28→22:17)
[2016-10-01] MEDS: AZITHROMYCIN 500MG/NS (PMX) 250 ML IV SCH (08:28)
[2016-10-01] MEDS: SALMETEROL/FLUTICASONE 250/50 INHA INH SCH ×3 (08:33→21:00)
[2016-10-01] MEDS: ALBUTEROL/IPRATROPIUM (NEB) 3 ML AMP NEB PRN ×2 (08:35→20:06)
[2016-10-01] MEDS: morphine 2 MG INJ IV PRN ×2 (09:04→19:41)
[2016-10-01 10:09] LABS: ADD SCAN DIFF NO
[2016-10-01 10:17] LABS: BASOPHILS % 0.1 % (0.0-2.0); EOSINOPHILS # 0.1 10^3/ul (0.0-0.5); EOSINOPHILS % 0.6 % (0.0-7.0); HEMATOCRIT 33.8 % (37.0-47.0); LYMPHOCYTES # 2.2 10^3/ul (0.8-2.9); LYMPHOCYTES % 26.2 % (15.0-51.0); MEAN CORPUSCULAR HEMOGLOBIN 30.2 pg (29.0-33.0); MEAN CORPUSCULAR HGB CONC 32.5 g/dl (32.0-37.0); MEAN CORPUSCULAR VOLUME 92.9 fl (82.0-101.0); MEAN PLATELET VOLUME 8.3 fl (7.4-10.4); MONOCYTE # 0.9 10^3/ul (0.3-0.9); PLATELET COUNT 453 10^3/UL (140-415); RED BLOOD COUNT 3.64 10^6/ul (4.20-5.40); RED CELL DISTRIBUTION WIDTH 13.2 % (11.5-14.5); WHITE BLOOD COUNT 8.3 10^3/ul (4.8-10.8)
[2016-10-01 10:45] LABS: CALCIUM 8.5 mg/dl (8.4-10.2); CREATININE 0.64 mg/dl (0.44-1.00); POTASSIUM 4.1 mmol/L (3.5-5.1)
--- NOTE | 2016-10-01 14:28 | CONS ---
Date/Time of Note Date/Time of Note DATE: 10/01/16 TIME: 14:27 Consult Date/Type/Reason Admit Date/Time Sep 27, 2016 at 05:34 Type of Consultation: pulmonary Subjective Patient states she is having more difficulty breathing this morning. Increased congestion and increased wheezing. Objective Vital Signs Date Time Temp Pulse Resp B/P Pulse Ox O2 Delivery O2 Flow Rate FiO2 10/01/16 08:34 82 20 98 21 10/01/16 07:52 98.0 144/94 Intake and Output 09/30/16 09/30/16 10/01/16 15:00 23:00 07:00 Intake Total 2650 ml 1430 ml Output Total 1200 ml Balance 2650 ml 230 ml Exam PHYSICAL EXAMINATION: GENERAL: Well-nourished, well-developed lady, appears comfortable at rest, no acute distress. VITAL SIGNS: NECK: Supple. No JVD or lymphadenopathy. CARDIAC: S1, S2, no added sounds or murmurs. CHEST: Diminished air entry bilaterally. Few rales on the left base. ABDOMEN: Soft, nontender. No guarding or rebound. EXTREMITIES: No cyanosis, clubbing, edema. NEUROLOGIC: Generalized weakness. Results/Medications Result Diagram: 10/01/16 0937 10/01/16 0937 Results 24 hrs Laboratory Tests Test 10/01/16 09:37 White Blood Count 8.3 # Red Blood Count 3.64 L Hemoglobin 11.0 L Hematocrit 33.8 L Mean Corpuscular Volume 92.9 Mean Corpuscular Hemoglobin 30.2 Mean Corpuscular Hemoglobin Concent 32.5 Red Cell Distribution Width 13.2 Platelet Count 453 H Mean Platelet Volume 8.3 Neutrophils % 61.0 Lymphocytes % 26.2 Monocytes % 11.0 Eosinophils % 0.6 Basophils % 0.1 Nucleated Red Blood Cells % 0.0 Neutrophils # 5.0 Lymphocytes # 2.2 Monocytes # 0.9 Eosinophils # 0.1 Basophils # 0.0 Nucleated Red Blood Cells # 0.0 Sodium Level 138 Potassium Level 4.1 Chloride Level 105 Carbon Dioxide Level 28 Anion Gap 9 # Blood Urea Nitrogen 10 Creatinine 0.64 Glucose Level 91 Calcium Level 8.5 Medications Current Medications Ondansetron HCl 4 mg 4 mg Q6H PRN IV NAUSEA AND/OR VOMITING Last administered on 09/30/16t 05:49; Admin Dose 4 MG; Start 09/27/16 at 06:30 Ceftriaxone Sodium 50 ml @ 100 mls/hr Q24H IVPB Last administered on 07:57; Admin Dose 100 MLS/HR; Start 09/27/16 at 08:00 Azithromycin (Zithromax 500mg/ NS (Pmx)) 250 ml @ 250 mls/hr Q24H IV Last administered on 10/01/16 08:28; Admin Dose 250 MLS/HR; Start 09/27/16 at 08:00 Ondansetron HCl (Zofran Tab) 4 mg Q6H PRN PO NAUSEA AND/OR VOMITING Last administered on 09/30/16 13:47; Admin Dose 4 MG; Start 09/27/16 at 08:00 Metoclopramide HCl (Reglan) 10 mg Q6H PRN IV NAUSEA AND/OR VOMITING; Start at 08:00 Acetaminophen (Tylenol Tab) 650 mg Q6H PRN PO PAIN LEVEL 1-3 OR FEVER; Start at 08:00 Acetaminophen/ Hydrocodone Bitart ([place] (5/325)) 1 tab Q6H PRN PO MODERATE PAIN LEVEL 4-6; Start 09/27/16 at 08:00 Acetaminophen/ Hydrocodone Bitart ([place] (5/325)) 2 tab Q6H PRN PO SEVERE PAIN LEVEL 7-10 Last administered on 10/01/16 06:38; Admin Dose 2 TAB; Start at 08:00 Famotidine (Pepcid) 20 mg Q12 PO Last administered on 10/01/16 08:28; Admin Dose 20 MG; Start 09/27/16 at 09:00 Guaifenesin/ Codeine Phosphate (Robitussin Ac Liquid Cup) 10 ml Q4H PRN PO COUGH; Start 09/28/16 at 22:00 Salmeterol Xinafoate/ Fluticasone (Advair 250/50 Diskus) 1 inh BID INH Last administered on 09/30/16 20:48; Admin Dose 1 INH; Start 09/28/16 at 10:30 Morphine Sulfate 2 mg 2 mg Q4H PRN IV pain Last administered on 10/01/16 09:04 ; Admin Dose 2 MG; Start 09/28/16 at 10:00 Sodium Chloride (NS) 1,000 ml @ 75 mls/hr [id number] IV Last administered on 10/01 08:00; Admin Dose 75 MLS/HR; Start 09/28/16 at 10:00 Benzonatate (Tessalon) 200 mg TID PO Last administered on 10/01/16 13:27; Admin Dose 200 MG; Start 09/29/16 at 13:00 Senna (Senokot) 2 tab DAILY PO Last administered on 10/01/16 08:28; Admin Dose 2 TAB; Start 09/29/16 at 10:30 Magnesium Hydroxide (Milk Of Mag) 30 ml BID PRN PO CONSTIPATION; Start at 10:30 Methylprednisolone Sodium Succinate (Solu-Medrol) 40 mg DAILY IV Last administered on 10/01/16 08:28; Admin Dose 40 MG; Start 10/01/16 at 09:00 Assessment/Plan Chief Complaint/Hosp Course IMPRESSION: 1. Probable community-acquired pneumonia. 2. History of lupus. 3. 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 RECOMMENDATIONS: 1. Continue steroids. Decrease dose today 2. Check IgE and IgE specific aspergillosis. Results pending 3. Continue current antibiotics. 4. Continue DVT and GI prophylaxis. Repeat chest x-ray Problems: JHONY JOHNSTON MD, [facility] Oct 01, 2016 14:28
--- NOTE | 2016-10-01 15:13 | RADRPT ---
PROCEDURE: XR Chest. CLINICAL INDICATION: Shortness of breath. History of pneumonia TECHNIQUE: A single portable view of the chest was obtained. COMPARISON: 09/28/2016 FINDINGS: The cardiomediastinal silhouette is within normal limits. Resolution of the patchy air space disease in the right perihilar region is seen. The lungs and pleural spaces are clear. The soft tissues an d osseous structures are unremarkable. IMPRESSION: No acute cardiopulmonary disease with resolution of the right perihilar patchy air space disease. RPTAT: HPNM Physician Prosper Date Time Electronically viewed and signed by Physician Prosper on 10/01/2016 15:13 /
--- NOTE | 2016-10-01 15:38 | PN ---
Date/Time of Note Date/Time of Note DATE: 10/01/16 TIME: 15:36 Assessment/Plan VTE Prophylaxis VTE Prophylaxis Intervention: ambulation Lines/Catheters IV C[facility]ter Type (from [facility]): Peripheral IV Assessment/Plan Chief Complaint/Hosp Course Assessment and plan 1. Community-acquired pneumonia. Continue antibiotics. Encourage incentive spirometer. Noted with normal sputum culture. Recent x-ray showed resolution of pneumonia. 2. Bronchospasm, possible early COPD. Continue on steroid. 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 Await for clinical improvement. O2 as needed 3. History of cigarette smoking. Cessation advised. DVT prophylaxis: SCDs Disposition and plan: Chest x-ray better. Still noted with wheezing. Continue bronchodilator as. Await for clinical improvement. Discharge when medically stable and cleared by consultants Discussed plan of care with Dr. Ceja Problems: Subjective 24 Hr Interval Summary Free Text/Dictation With reported worse breathing. Anxious Exam/Review of Systems Vital Signs Vitals Vital Signs Date Time Temp Pulse Resp B/P Pulse Ox O2 Delivery O2 Flow Rate FiO2 10/01/16 08:34 82 20 98 21 10/01/16 07:52 98.0 144/94 Intake and Output 09/30/16 09/30/16 10/01/16 15:00 23:00 07:00 Intake Total 2650 ml 1430 ml Output Total 1200 ml Balance 2650 ml 230 ml Exam Constitutional: alert, oriented (anxious) Psych: anxiety Head: normocephalic Neck: non-tender, supple Respiratory: wheezing Cardiovascular: regular rate and rhythm Gastrointestinal: non-tender, soft Musculoskeletal: nl extremities to inspection Extremities: normal pulses Neurological: 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, nl mental status, nl speech Skin: nl turgor Results Result Diagram: 10/01/1637 10/01/16 0937 Results 24 hrs Laboratory Tests Test 10/01/16 09:37 White Blood Count 8.3 # Red Blood Count 3.64 L Hemoglobin 11.0 L Hematocrit 33.8 L Mean Corpuscular Volume 92.9 Mean Corpuscular Hemoglobin 30.2 Mean Corpuscular Hemoglobin Concent 32.5 Red Cell Distribution Width 13.2 Platelet Count 453 H Mean Platelet Volume 8.3 Neutrophils % 61.0 Lymphocytes % 26.2 Monocytes % 11.0 Eosinophils % 0.6 Basophils % 0.1 Nucleated Red Blood Cells % 0.0 Neutrophils # 5.0 Lymphocytes # 2.2 Monocytes # 0.9 Eosinophils # 0.1 Basophils # 0.0 Nucleated Red Blood Cells # 0.0 Sodium Level 138 Potassium Level 4.1 Chloride Level 105 Carbon Dioxide Level 28 Anion Gap 9 # Blood Urea Nitrogen 10 Creatinine 0.64 Glucose Level 91 Calcium Level 8.5 Medications Medications Current Medications Ondansetron HCl 4 mg 4 mg Q6H PRN IV NAUSEA AND/OR VOMITING Last administered on 09/30/16 05:49; Admin Dose 4 MG; Start 09/27/16 at 06:30 Ceftriaxone Sodium 50 ml @ 100 mls/hr Q24H IVPB Last administered on 07:57; Admin Dose 100 MLS/HR; Start 09/27/16 at 08:00 Azithromycin (Zithromax 500mg/ NS (Pmx)) 250 ml @ 250 mls/hr Q24H IV Last administered on 10/01/16 08:28; Admin Dose 250 MLS/HR; Start 09/27/16 at 08:00 Ondansetron HCl (Zofran Tab) 4 mg Q6H PRN PO NAUSEA AND/OR VOMITING Last administered on 09/30/16 13:47; Admin Dose 4 MG; Start 09/27/16 at 08:00 Metoclopramide HCl (Reglan) 10 mg Q6H PRN IV NAUSEA AND/OR VOMITING; Start at 08:00 Acetaminophen (Tylenol Tab) 650 mg Q6H PRN PO PAIN LEVEL 1-3 OR FEVER; Start at 08:00 Acetaminophen/ Hydrocodone Bitart ([place] (5/325)) 1 tab Q6H PRN PO MODERATE PAIN LEVEL 4-6; Start 09/27/16 at 08:00 Acetaminophen/ Hydrocodone Bitart ([place] (5/325)) 2 tab Q6H PRN PO SEVERE PAIN LEVEL 7-10 Last administered on 10/01/16 06:38; Admin Dose 2 TAB; Start at 08:00 Famotidine (Pepcid) 20 mg Q12 PO Last administered on 10/01/16 08:28; Admin Dose 20 MG; Start 09/27/16 at 09:00 Guaifenesin/ Codeine Phosphate (Robitussin Ac Liquid Cup) 10 ml Q4H PRN PO COUGH; Start 09/28/16 at 22:00 Salmeterol Xinafoate/ Fluticasone (Advair 250/50 Diskus) 1 inh BID INH Last administered on 09/30/16 20:48; Admin Dose 1 INH; Start 09/28/16 at 10:30 Morphine Sulfate 2 mg 2 mg Q4H PRN IV pain Last administered on 10/01/16 09:04 ; Admin Dose 2 MG; Start 09/28/16 at 10:00 Sodium Chloride (NS) 1,000 ml @ 75 mls/hr [id number] IV Last administered on 10/01 08:00; Admin Dose 75 MLS/HR; Start 09/28/16 at 10:00 Benzonatate (Tessalon) 200 mg TID PO Last administered on 10/01/16 13:27; Admin Dose 200 MG; Start 09/29/16 at 13:00 Senna (Senokot) 2 tab DAILY PO Last administered on 10/01/16 08:28; Admin Dose 2 TAB; Start 09/29/16 at 10:30 Magnesium Hydroxide (Milk Of Mag) 30 ml BID PRN PO CONSTIPATION; Start at 10:30 Methylprednisolone Sodium Succinate (Solu-Medrol) 40 mg DAILY IV Last administered on 10/01/16 08:28; Admin Dose 40 MG; Start 10/01/16 at 09:00 DELORIS GONZALEZ Oct 01, 2016 15:38
[2016-10-02] MEDS: HYDROCODONE/APAP (5/325) TAB PO PRN (05:56)
[2016-10-02] MEDS: morphine 2 MG INJ IV PRN (05:57)
[2016-10-02 06:17] LABS: ADD SCAN DIFF NO
[2016-10-02 06:40] LABS: BASOPHILS % 0.2 % (0.0-2.0); EOSINOPHILS # 0.1 10^3/ul (0.0-0.5); HEMATOCRIT 35.8 % (37.0-47.0); HEMOGLOBIN 11.6 g/dl (12.0-16.0); LYMPHOCYTES # 2.8 10^3/ul (0.8-2.9); LYMPHOCYTES % 28.3 % (15.0-51.0); MEAN CORPUSCULAR HEMOGLOBIN 29.4 pg (29.0-33.0); MEAN CORPUSCULAR HGB CONC 32.4 g/dl (32.0-37.0); MEAN CORPUSCULAR VOLUME 90.9 fl (82.0-101.0); MEAN PLATELET VOLUME 8.3 fl (7.4-10.4); MONOCYTES % 10.3 % (0.0-11.0); NEUTROPHIL # 5.8 10^3/ul (1.6-7.5); NEUTROPHILS % 59.2 % (39.0-77.0); PLATELET COUNT 485 10^3/UL (140-415); RED BLOOD COUNT 3.94 10^6/ul (4.20-5.40); RED CELL DISTRIBUTION WIDTH 13.2 % (11.5-14.5); WHITE BLOOD COUNT 9.8 10^3/ul (4.8-10.8)
[2016-10-02 06:44] LABS: POTASSIUM 3.5 mmol/L (3.5-5.1)
[2016-10-02 06:46] LABS: CREATININE 0.63 mg/dl (0.44-1.00)
[2016-10-02 06:47] LABS: CALCIUM 8.5 mg/dl (8.4-10.2)
[2016-10-02 07:37] VITALS: BP 137/92; RESP 18
[2016-10-02] MEDS: BENZONATATE 100 MG CAP PO SCH ×3 (09:00→21:43)
[2016-10-02] MEDS: SENNA TAB PO SCH (09:01)
[2016-10-02] MEDS: FAMOTIDINE 20 MG TAB PO SCH ×2 (09:02→21:43)
[2016-10-02] MEDS: METHYLPREDNISOLONE 40 MG INJ IV SCH ×3 (09:02→19:34)
[2016-10-02] MEDS: SALMETEROL/FLUTICASONE 250/50 INHA INH SCH ×2 (09:02→21:43)
[2016-10-02] MEDS: AZITHROMYCIN 500MG/NS (PMX) 250 ML IV SCH (09:02)
[2016-10-02] MEDS: CEFTRIAXONE 1 GM/50 ML (PMX) 50 ML IVPB SCH (10:57)
--- NOTE | 2016-10-02 11:41 | CONS ---
Date/Time of Note Date/Time of Note DATE: 10/02/16 TIME: 11:39 Assessment/Plan Assessment/Plan Additional Assessment/Plan Assessment and recommendations; 1. Patient admitted with acute bronchitis with wheezing. 2. Sinusitis. 3. History of SLE. 4. Current smoker. Change Solu-Medrol dosing back to 40 mg every 6 hours, add Claritin-D every 12 hours scheduled, change DuoNeb to every 6 hours scheduled, add Mucinex 600 mg twice daily. Continue other medications. Patient was counseled to quit smoking Consultation Date/Type/Reason Admit Date/Time Sep 27, 2016 at 05:34 Initial Consult Date Type of Consultation: pulmonary 24 HR Interval Summary Free Text/Dictation Patient still complaining of significant chest congestion wheezing and cough. Also complains of sinus congestion and postnasal drip. Denies any fever chills , complains of very scant yellow sputum production. General exam; young lady, awake alert currently in no distress. Exam/Review of Systems Vital Signs Vitals Vital Signs Date Time Temp Pulse Resp B/P Pulse Ox O2 Delivery O2 Flow Rate FiO2 10/02/16 07:37 98.2 81 18 137/92 97 10/02/16 07:28 2.0 10/01/16 20:20 Nasal Cannula 10/01/16 08:34 21 Intake and Output 10/01/16 10/01/16 10/02/16 15:00 23:00 07:00 Intake Total 550 ml 2445 ml 900 ml Balance 550 ml 2445 ml 900 ml Exam HEENT exam is; supple neck, there is bilateral maxillary sinus tenderness. Pharynx is clear. Nasal congestion is present as well. Pupils are equal reactive to light bilaterally. No neck masses. No thyromegaly. Chest examination; bilateral expiratory wheezing. S1-S2 audible, no murmurs. Regular rhythm. Abdomen; benign. Extremity exam is; no peripheral edema. OPTIONS ADVISOR examination; no focal deficit. Results Result Diagram: 10/02/16 0549 10/02/16 0549 Results 24 hrs Laboratory Tests Test 10/02/16 05:49 White Blood Count 9.8 Red Blood Count 3.94 L Hemoglobin 11.6 L Hematocrit 35.8 L Mean Corpuscular Volume 90.9 Mean Corpuscular Hemoglobin 29.4 Mean Corpuscular Hemoglobin Concent 32.4 Red Cell Distribution Width 13.2 Platelet Count 485 H Mean Platelet Volume 8.3 Neutrophils % 59.2 Lymphocytes % 28.3 Monocytes % 10.3 Eosinophils % 1.0 Basophils % 0.2 Nucleated Red Blood Cells % 0.0 Neutrophils # 5.8 Lymphocytes # 2.8 Monocytes # 1.0 H Eosinophils # 0.1 Basophils # 0.0 Nucleated Red Blood Cells # 0.0 Sodium Level 137 Potassium Level 3.5 Chloride Level 102 Carbon Dioxide Level 25 Anion Gap 14 Blood Urea Nitrogen 11 Creatinine 0.63 Glucose Level 86 Calcium Level 8.5 Medications Medications Current Medications Ondansetron HCl 4 mg 4 mg Q6H PRN IV NAUSEA AND/OR VOMITING Last administered on 09/30/16 05:49; Admin Dose 4 MG; Start 09/27/16 at 06:30 Ceftriaxone Sodium 50 ml @ 100 mls/hr Q24H IVPB Last administered on 10:57; Admin Dose 100 MLS/HR; Start 09/27/16 at 08:00 Azithromycin (Zithromax 500mg/ NS (Pmx)) 250 ml @ 250 mls/hr Q24H IV Last administered on 10/02/16 09:02; Admin Dose 250 MLS/HR; Start 09/27/16 at 08:00 Ondansetron HCl (Zofran Tab) 4 mg Q6H PRN PO NAUSEA AND/OR VOMITING Last administered on 09/30/16 13:47; Admin Dose 4 MG; Start 09/27/16 at 08:00 Metoclopramide HCl (Reglan) 10 mg Q6H PRN IV NAUSEA AND/OR VOMITING; Start at 08:00 Acetaminophen (Tylenol Tab) 650 mg Q6H PRN PO PAIN LEVEL 1-3 OR FEVER; Start at 08:00 Acetaminophen/ Hydrocodone Bitart ([place] (5/325)) 1 tab Q6H PRN PO MODERATE PAIN LEVEL 4-6; Start 09/27/16 at 08:00 Acetaminophen/ Hydrocodone Bitart ([place] (5/325)) 2 tab Q6H PRN PO SEVERE PAIN LEVEL 7-10 Last administered on 10/02/16 05:56; Admin Dose 2 TAB; Start at 08:00 Famotidine (Pepcid) 20 mg Q12 PO Last administered on 10/02/16 09:02; Admin Dose 20 MG; Start 09/27/16 at 09:00 Guaifenesin/ Codeine Phosphate (Robitussin Ac Liquid Cup) 10 ml Q4H PRN PO COUGH Last administered on 10/02/16 02:28; Admin Dose 10 ML; Start 09/28/16 at 22:00 Salmeterol Xinafoate/ Fluticasone (Advair 250/50 Diskus) 1 inh BID INH Last administered on 10/02/16 09:02; Admin Dose 1 INH; Start 09/28/16 at 10:30 Morphine Sulfate 2 mg 2 mg Q4H PRN IV pain Last administered on 10/02/16 05:57 ; Admin Dose 2 MG; Start 09/28/16 at 10:00 Sodium Chloride (NS) 1,000 ml @ 75 mls/hr [id number] IV Last administered on 10/01 23:24; Admin Dose 75 MLS/HR; Start 09/28/16 at 10:00 Benzonatate (Tessalon) 200 mg TID PO Last administered on 10/01/16 22:16; Admin Dose 200 MG; Start 09/29/16 at 13:00 Senna (Senokot) 2 tab DAILY PO Last administered on 10/02/16 09:01; Admin Dose 2 TAB; Start 09/29/16 at 10:30 Magnesium Hydroxide (Milk Of Mag) 30 ml BID PRN PO CONSTIPATION; Start at 10:30 Methylprednisolone Sodium Succinate (Solu-Medrol) 40 mg DAILY IV Last administered on 10/02/16 09:02; Admin Dose 40 MG; Start 10/01/16 at 09:00 SUSAN CURRIE Oct 02, 2016 11:41
[2016-10-02] MEDS ORDERED: METHYLPREDNISOLONE 40 MG INJ IV SCH (12:00)
[2016-10-02] MEDS: LORATADINE/PSEUDOEPHED (SR) TAB PO SCH ×2 (12:23→21:43)
[2016-10-02] MEDS: GUAIFENESIN LA 600 MG TABSR PO SCH ×2 (12:23→21:43)
[2016-10-02] MEDS: HYDROCODONE/APAP (10/325) TAB PO PRN ×2 (12:24→21:49)
[2016-10-02] MEDS ORDERED: HYDROCODONE/APAP (10/325) TAB PO PRN (12:30)
--- NOTE | 2016-10-02 13:51 | PN ---
Date/Time of Note Date/Time of Note DATE: 10/02/16 TIME: 13:48 Assessment/Plan VTE Prophylaxis VTE Prophylaxis Intervention: SCD's Lines/Catheters IV [facility]ter Type (from [facility]): Peripheral IV Assessment/Plan Chief Complaint/Hosp Course Assessment and plan 1. Community-acquired pneumonia. Continue antibiotics. Encourage incentive spirometer. Noted with normal sputum culture. Recent x-ray showed resolution of pneumonia. cont with behavior analyst recs 2. Bronchospasm, possible early COPD. Continue on steroid. slowly improving 3. History of cigarette smoking. Cessation advised. DVT prophylaxis: SCDs Disposition and plan: continue bronchodilators. improving at present. d/c when medically stable Discussed plan of care with Dr. Ceja Problems: Subjective 24 Hr Interval Summary Free Text/Dictation reports better breathing. still has some wheezing. Exam/Review of Systems Vital Signs Vitals Vital Signs Date Time Temp Pulse Resp B/P Pulse Ox O2 Delivery O2 Flow Rate FiO2 10/02/16 08:05 Nasal Cannula 2.0 10/02/16 07:37 98.2 81 18 137/92 97 10/01/16 08:34 21 Intake and Output 10/01/16 10/01/16 10/02/16 15:00 23:00 07:00 Intake Total 550 ml 2445 ml 900 ml Balance 550 ml 2445 ml 900 ml Exam Constitutional: alert, oriented Psych: nl mood/affect Head: normocephalic Eyes: nl conjunctiva Neck: non-tender, supple Respiratory: wheezing Cardiovascular: nl pulses, regular rate and rhythm Gastrointestinal: non-tender, soft Musculoskeletal: nl extremities to inspection Extremities: normal pulses Neurological: CLERICAL OFFICE II-XII intact, nl mental status, nl speech Skin: nl turgor Results Result Diagram: 10/02/16 0549 10/02/16 0549 Results 24 hrs Laboratory Tests Test 10/02/16 05:49 White Blood Count 9.8 Red Blood Count 3.94 L Hemoglobin 11.6 L Hematocrit 35.8 L Mean Corpuscular Volume 90.9 Mean Corpuscular Hemoglobin 29.4 Mean Corpuscular Hemoglobin Concent 32.4 Red Cell Distribution Width 13.2 Platelet Count 485 H Mean Platelet Volume 8.3 Neutrophils % 59.2 Lymphocytes % 28.3 Monocytes % 10.3 Eosinophils % 1.0 Basophils % 0.2 Nucleated Red Blood Cells % 0.0 Neutrophils # 5.8 Lymphocytes # 2.8 Monocytes # 1.0 H Eosinophils # 0.1 Basophils # 0.0 Nucleated Red Blood Cells # 0.0 Sodium Level 137 Potassium Level 3.5 Chloride Level 102 Carbon Dioxide Level 25 Anion Gap 14 Blood Urea Nitrogen 11 Creatinine 0.63 Glucose Level 86 Calcium Level 8.5 Medications Medications Current Medications Ondansetron HCl 4 mg 4 mg Q6H PRN IV NAUSEA AND/OR VOMITING Last administered on 09/30/16 05:49; Admin Dose 4 MG; Start 09/27/16 at 06:30 Ceftriaxone Sodium 50 ml @ 100 mls/hr Q24H IVPB Last administered on 10:57; Admin Dose 100 MLS/HR; Start 09/27/16 at 08:00 Azithromycin (Zithromax 500mg/ NS (Pmx)) 250 ml @ 250 mls/hr Q24H IV Last administered on 10/02/16 09:02; Admin Dose 250 MLS/HR; Start 09/27/16 at 08:00 Ondansetron HCl (Zofran Tab) 4 mg Q6H PRN PO NAUSEA AND/OR VOMITING Last administered on 09/30/16 13:47; Admin Dose 4 MG; Start 09/27/16 at 08:00 Metoclopramide HCl (Reglan) 10 mg Q6H PRN IV NAUSEA AND/OR VOMITING; Start at 08:00 Acetaminophen (Tylenol Tab) 650 mg Q6H PRN PO PAIN LEVEL 1-3 OR FEVER; Start at 08:00 Famotidine (Pepcid) 20 mg Q12 PO Last administered on 10/02/16 09:02; Admin Dose 20 MG; Start 09/27/16 at 09:00 Guaifenesin/ Codeine Phosphate (Robitussin Ac Liquid Cup) 10 ml Q4H PRN PO COUGH Last administered on 10/02/16 02:28; Admin Dose 10 ML; Start 09/28/16 at 22:00 Salmeterol Xinafoate/ Fluticasone (Advair 250/50 Diskus) 1 inh BID INH Last administered on 10/02/16 09:02; Admin Dose 1 INH; Start 09/28/16 at 10:30 Morphine Sulfate 2 mg 2 mg Q4H PRN IV pain Last administered on 10/02/16 05:57 ; Admin Dose 2 MG; Start 09/28/16 at 10:00 Sodium Chloride (NS) 1,000 ml @ 75 mls/hr [id number] IV Last administered on 10/01 23:24; Admin Dose 75 MLS/HR; Start 09/28/16 at 10:00 Benzonatate (Tessalon) 200 mg TID PO Last administered on 10/02/16 12:23; Admin Dose 200 MG; Start 09/29/16 at 13:00 Senna (Senokot) 2 tab DAILY PO Last administered on 10/02/16 09:01; Admin Dose 2 TAB; Start 09/29/16 at 10:30 Magnesium Hydroxide (Milk Of Mag) 30 ml BID PRN PO CONSTIPATION; Start at 10:30 Guaifenesin (Mucinex) 600 mg BID PO Last administered on 10/02/16 12:23; Admin Dose 600 MG; Start 10/02/16 at 12:00 Loratadine/ Pseudoephedrine Sulfate (Claritin-D 12 Hr) 1 tab Q12 PO Last administered on 10/02/16 12:23; Admin Dose 1 TAB; Start 10/02/16 at 12:00 Acetaminophen/ Hydrocodone Bitart ([place] (10/325)) 1 tab Q4H PRN PO PAIN; Start 10/02/16 at 12:30 Acetaminophen/ Hydrocodone Bitart ([place] (10/325)) 2 tab Q4H PRN PO SEVERE PAIN Last administered on 10/02/16 12:24; Admin Dose 2 TAB; Start 10/02/16 at 12:30 Methylprednisolone Sodium Succinate (Solu-Medrol) 40 mg Q6 IV ; Start 10/02/16 at 14:00 DELORIS GONZALEZ Oct 02, 2016 13:51
[2016-10-02] MEDS: SOD CHLORIDE 0.9% 1,000 ML IV SCH (14:47)
[2016-10-02] MEDS: ALBUTEROL/IPRATROPIUM (NEB) 3 ML AMP HHN SCH ×2 (15:27→19:59)
[2016-10-02 20:22] VITALS: BP 130/77; RESP 18
[2016-10-03] MEDS: METHYLPREDNISOLONE 40 MG INJ IV SCH ×4 (00:37→17:21)
[2016-10-03] MEDS: ONDANSETRON 4 MG TAB PO PRN ×2 (05:13→22:27)
[2016-10-03] MEDS: HYDROCODONE/APAP (10/325) TAB PO PRN ×3 (05:13→22:25)
[2016-10-03] MEDS: SOD CHLORIDE 0.9% 1,000 ML IV SCH ×4 (05:16→22:21)
[2016-10-03 06:13] LABS: ADD SCAN DIFF NO
[2016-10-03 06:17] LABS: BASOPHILS % 0.1 % (0.0-2.0); HEMOGLOBIN 13.2 g/dl (12.0-16.0); MEAN CORPUSCULAR HEMOGLOBIN 29.3 pg (29.0-33.0); MEAN CORPUSCULAR VOLUME 88.9 fl (82.0-101.0); MEAN PLATELET VOLUME 8.3 fl (7.4-10.4); MONOCYTE # 0.5 10^3/ul (0.3-0.9); MONOCYTES % 2.8 % (0.0-11.0); NEUTROPHIL # 15.7 10^3/ul (1.6-7.5); NEUTROPHILS % 90.2 % (39.0-77.0); PLATELET COUNT 582 10^3/UL (140-415); RED CELL DISTRIBUTION WIDTH 12.6 % (11.5-14.5); WHITE BLOOD COUNT 17.4 10^3/ul (4.8-10.8)
[2016-10-03 06:40] LABS: CALCIUM 9.5 mg/dl (8.4-10.2); CREATININE 0.52 mg/dl (0.44-1.00)
[2016-10-03] MEDS: CEFTRIAXONE 1 GM/50 ML (PMX) 50 ML IVPB SCH (07:48)
[2016-10-03 08:09] VITALS: BP 136/76; RESP 18
[2016-10-03] MEDS: FAMOTIDINE 20 MG TAB PO SCH ×2 (09:41→20:41)
[2016-10-03] MEDS: AZITHROMYCIN 500MG/NS (PMX) 250 ML IV SCH (09:41)
[2016-10-03] MEDS: GUAIFENESIN LA 600 MG TABSR PO SCH ×2 (09:41→20:41)
[2016-10-03] MEDS: LORATADINE/PSEUDOEPHED (SR) TAB PO SCH ×2 (09:41→20:41)
[2016-10-03] MEDS: SENNA TAB PO SCH (09:42)
[2016-10-03] MEDS: SALMETEROL/FLUTICASONE 250/50 INHA INH SCH ×2 (09:42→20:41)
[2016-10-03] MEDS: ALBUTEROL/IPRATROPIUM (NEB) 3 ML AMP HHN SCH ×3 (10:15→20:00)
[2016-10-03] MEDS: BENZONATATE 100 MG CAP PO SCH ×4 (10:41→22:31)
--- NOTE | 2016-10-03 13:11 | CONS ---
Date/Time of Note Date/Time of Note DATE: 10/03/16 TIME: 13:09 Assessment/Plan Assessment/Plan Additional Assessment/Plan Assessment and recommendations; 1. Patient admitted with acute bronchitis and sinusitis with gradual clinical improvement. 2. Leukocytosis, likely a steroid response. 3. Current smoker. Continue current treatment. Consultation Date/Type/Reason Admit Date/Time Sep 27, 2016 at 05:34 Type of Consultation: pulmonary 24 HR Interval Summary Free Text/Dictation Patient condition is slightly improved according to her nasal congestion is improved. Patient denies any wheezing but still complains of chest congestion and shortness of breath. Denies any fever chills chest pain. Exam; young woman, awake alert currently in no distress. Exam/Review of Systems Vital Signs Vitals Vital Signs Date Time Temp Pulse Resp B/P Pulse Ox O2 Delivery O2 Flow Rate FiO2 10/03/16 10:15 103 20 96 21 10/03/16 08:09 98.5 136/76 10/03/16 08:00 Nasal Cannula 10/03/16 01:58 2.0 Intake and Output 10/02/16 10/02/16 10/03/16 15:00 23:00 07:00 Intake Total 1180 ml 2005 ml 1255 ml Balance 1180 ml 2005 ml 1255 ml Exam HEENT exam is; supple neck, no JVD. No lymphadenopathy. Midline trachea. No thyromegaly. Pharynx is clear. Patient has fair dentition. There is mild bilateral maxillary sinus tenderness present. Chest examined; diminished but clear breath sounds bilaterally. No added sound. S1-S2 audible, no murmurs. Regular rhythm. Abdomen examination; soft, no organomegaly. Extremity examination; no peripheral edema. DIRECTOR OF STRATEGIC PROGRAMS examination; no focal deficit. Results Result Diagram: 10/03/16 0535 10/03/16 0535 Results 24 hrs Laboratory Tests Test 10/03/16 05:35 White Blood Count 17.4 #H Red Blood Count 4.50 Hemoglobin 13.2 Hematocrit 40.0 Mean Corpuscular Volume 88.9 Mean Corpuscular Hemoglobin 29.3 Mean Corpuscular Hemoglobin Concent 33.0 Red Cell Distribution Width 12.6 Platelet Count 582 H Mean Platelet Volume 8.3 Neutrophils % 90.2 H Lymphocytes % 6.0 L Monocytes % 2.8 Eosinophils % 0.0 Basophils % 0.1 Nucleated Red Blood Cells % 0.0 Neutrophils # 15.7 H Lymphocytes # 1.0 Monocytes # 0.5 Eosinophils # 0.0 Basophils # 0.0 Nucleated Red Blood Cells # 0.0 Sodium Level 136 Potassium Level 4.0 Chloride Level 102 Carbon Dioxide Level 26 Anion Gap 12 Blood Urea Nitrogen 9 Creatinine 0.52 Glucose Level 133 # Calcium Level 9.5 Medications Medications Current Medications Ondansetron HCl 4 mg 4 mg Q6H PRN IV NAUSEA AND/OR VOMITING Last administered on 09/30/16 05:49; Admin Dose 4 MG; Start 09/27/16 at 06:30 Ceftriaxone Sodium 50 ml @ 100 mls/hr Q24H IVPB Last administered on 07:48; Admin Dose 100 MLS/HR; Start 09/27/16 at 08:00 Azithromycin (Zithromax 500mg/ NS (Pmx)) 250 ml @ 250 mls/hr Q24H IV Last administered on 10/03/16 09:41; Admin Dose 250 MLS/HR; Start 09/27/16 at 08:00 Ondansetron HCl (Zofran Tab) 4 mg Q6H PRN PO NAUSEA AND/OR VOMITING Last administered on 10/03/16 05:13; Admin Dose 4 MG; Start 09/27/16 at 08:00 Metoclopramide HCl (Reglan) 10 mg Q6H PRN IV NAUSEA AND/OR VOMITING; Start at 08:00 Acetaminophen (Tylenol Tab) 650 mg Q6H PRN PO PAIN LEVEL 1-3 OR FEVER; Start at 08:00 Famotidine (Pepcid) 20 mg Q12 PO Last administered on 10/03/16 09:41; Admin Dose 20 MG; Start 09/27/16 at 09:00 Guaifenesin/ Codeine Phosphate (Robitussin Ac Liquid Cup) 10 ml Q4H PRN PO COUGH Last administered on 10/02/16 02:28; Admin Dose 10 ML; Start 09/28/16 at 22:00 Salmeterol Xinafoate/ Fluticasone (Advair 250/50 Diskus) 1 inh BID INH Last administered on 10/03/16 09:42; Admin Dose 1 INH; Start 09/28/16 at 10:30 Morphine Sulfate 2 mg 2 mg Q4H PRN IV pain Last administered on 10/02/16 05:57 ; Admin Dose 2 MG; Start 09/28/16 at 10:00 Sodium Chloride (NS) 1,000 ml @ 75 mls/hr [id number] IV Last administered on 10/03 05:16; Admin Dose 75 MLS/HR; Start 09/28/16 at 10:00 Benzonatate (Tessalon) 200 mg TID PO Last administered on 10/03/16 12:10; Admin Dose 200 MG; Start 09/29/16 at 13:00 Senna (Senokot) 2 tab DAILY PO Last administered on 10/03/16 09:42; Admin Dose 2 TAB; Start 09/29/16 at 10:30 Magnesium Hydroxide (Milk Of Mag) 30 ml BID PRN PO CONSTIPATION; Start at 10:30 Guaifenesin (Mucinex) 600 mg BID PO Last administered on 10/03/16 09:41; Admin Dose 600 MG; Start 10/02/16 at 12:00 Loratadine/ Pseudoephedrine Sulfate (Claritin-D 12 Hr) 1 tab Q12 PO Last administered on 10/03/16 09:41; Admin Dose 1 TAB; Start 10/02/16 at 12:00 Acetaminophen/ Hydrocodone Bitart ([place] (10/325)) 1 tab Q4H PRN PO PAIN; Start 10/02/16 at 12:30 Acetaminophen/ Hydrocodone Bitart ([place] (10/325)) 2 tab Q4H PRN PO SEVERE PAIN Last administered on 10/03/16 05:13; Admin Dose 2 TAB; Start 10/02/16 at 12:30 Methylprednisolone Sodium Succinate (Solu-Medrol) 40 mg Q6 IV Last administered on 10/03/16 12:10; Admin Dose 40 MG; Start 10/02/16 at 14:00 SUSAN CURRIE Oct 03, 2016 13:11
--- NOTE | 2016-10-03 15:18 | PN ---
Date/Time of Note Date/Time of Note DATE: 10/03/16 TIME: 15:16 Assessment/Plan VTE Prophylaxis VTE Prophylaxis Intervention: SCD's Lines/Catheters IV [facility]from [facility] Peripheral IV Assessment/Plan Chief Complaint/Hosp Course Assessment and plan 1. Community-acquired pneumonia. Continue antibiotics. Encourage incentive spirometer. Noted with normal sputum culture. Recent x-ray showed resolution of pneumonia. cont with cv/cvn cv tsc system operator recs 2. Bronchospasm, possible early COPD. Continue on steroid. slowly improving 3. History of cigarette smoking. Cessation advised. DVT prophylaxis: SCDs Disposition and plan: continue bronchodilators. Still with wheezing. Await for improving. Discharge when medically stable and cleared by consultants Discussed plan of care with Dr. Ceja Problems: Subjective 24 Hr Interval Summary Free Text/Dictation Still reports having upper airway wheezing. Reports better breathing the Exam/Review of Systems Vital Signs Vitals Vital Signs Date Time Temp Pulse Resp B/P Pulse Ox O2 Delivery O2 Flow Rate FiO2 10/03/16 10:15 103 20 96 21 10/03/16 08:09 98.5 136/76 10/03/16 08:00 Nasal Cannula 10/03/16 01:58 2.0 Intake and Output 10/02/16 10/02/16 10/03/16 14:59 22:59 06:59 Intake Total 1180 ml 2004 ml 1255 ml Balance 1180 ml 2005 ml 1255 ml Exam Constitutional: alert, oriented Head: normocephalic Eyes: nl conjunctiva Neck: supple, No jvd Respiratory: wheezing Gastrointestinal: non-tender, soft Extremities: No edema Neurological: CLINICAL MARKETING MANAGER II-XII intact, nl mental status, nl speech Results Result Diagram: 10/03/16 0535 10/03/16 0535 Results 24 hrs Laboratory Tests Test 10/03/16 05:35 White Blood Count 17.4 #H Red Blood Count 4.50 Hemoglobin 13.2 Hematocrit 40.0 Mean Corpuscular Volume 88.9 Mean Corpuscular Hemoglobin 29.3 Mean Corpuscular Hemoglobin Concent 33.0 Red Cell Distribution Width 12.6 Platelet Count 582 H Mean Platelet Volume 8.3 Neutrophils % 90.2 H Lymphocytes % 6.0 L Monocytes % 2.8 Eosinophils % 0.0 Basophils % 0.1 Nucleated Red Blood Cells % 0.0 Neutrophils # 15.7 H Lymphocytes # 1.0 Monocytes # 0.5 Eosinophils # 0.0 Basophils # 0.0 Nucleated Red Blood Cells # 0.0 Sodium Level 136 Potassium Level 4.0 Chloride Level 102 Carbon Dioxide Level 26 Anion Gap 12 Blood Urea Nitrogen 9 Creatinine 0.52 Glucose Level 133 # Calcium Level 9.5 Medications Medications Current Medications Ondansetron HCl 4 mg 4 mg Q6H PRN IV NAUSEA AND/OR VOMITING Last administered on 09/30/16 05:49; Admin Dose 4 MG; Start 09/27/16 at 06:30 Ceftriaxone Sodium 50 ml @ 100 mls/hr Q24H IVPB Last administered on 07:48; Admin Dose 100 MLS/HR; Start 09/27/16 at 08:00 Azithromycin (Zithromax 500mg/ NS (Pmx)) 250 ml @ 250 mls/hr Q24H IV Last administered on 10/03/16 09:41; Admin Dose 250 MLS/HR; Start 09/27/16 at 08:00 Ondansetron HCl (Zofran Tab) 4 mg Q6H PRN PO NAUSEA AND/OR VOMITING Last administered on 10/03/16 05:13; Admin Dose 4 MG; Start 09/27/16 at 08:00 Metoclopramide HCl (Reglan) 10 mg Q6H PRN IV NAUSEA AND/OR VOMITING; Start at 08:00 Acetaminophen (Tylenol Tab) 650 mg Q6H PRN PO PAIN LEVEL 1-3 OR FEVER; Start at 08:00 Famotidine (Pepcid) 20 mg Q12 PO Last administered on 10/03/16 09:41; Admin Dose 20 MG; Start 09/27/16 at 09:00 Guaifenesin/ Codeine Phosphate (Robitussin Ac Liquid Cup) 10 ml Q4H PRN PO COUGH Last administered on 10/02/16 02:28; Admin Dose 10 ML; Start 09/28/16 at 22:00 Salmeterol Xinafoate/ Fluticasone (Advair 250/50 Diskus) 1 inh BID INH Last administered on 10/03/16 09:42; Admin Dose 1 INH; Start 09/28/16 at 10:30 Morphine Sulfate 2 mg 2 mg Q4H PRN IV pain Last administered on 10/02/16 05:57 ; Admin Dose 2 MG; Start 09/28/16 at 10:00 Sodium Chloride (NS) 1,000 ml @ 75 mls/hr [id number] IV Last administered on 10/03 05:16; Admin Dose 75 MLS/HR; Start 09/28/16 at 10:00 Benzonatate (Tessalon) 200 mg TID PO Last administered on 10/03/16 12:10; Admin Dose 200 MG; Start 09/29/16 at 13:00 Senna (Senokot) 2 tab DAILY PO Last administered on 10/03/16 09:42; Admin Dose 2 TAB; Start 09/29/16 at 10:30 Magnesium Hydroxide (Milk Of Mag) 30 ml BID PRN PO CONSTIPATION; Start at 10:30 Guaifenesin (Mucinex) 600 mg BID PO Last administered on 10/03/16 09:41; Admin Dose 600 MG; Start 10/02/16 at 12:00 Loratadine/ Pseudoephedrine Sulfate (Claritin-D 12 Hr) 1 tab Q12 PO Last administered on 10/03/16 09:41; Admin Dose 1 TAB; Start 10/02/16 at 12:00 Acetaminophen/ Hydrocodone Bitart ([place] (10/325)) 1 tab Q4H PRN PO PAIN; Start 10/02/16 at 12:30 Acetaminophen/ Hydrocodone Bitart ([place] (10/325)) 2 tab Q4H PRN PO SEVERE PAIN Last administered on 10/03/16 14:08; Admin Dose 2 TAB; Start 10/02/16 at 12:30 Methylprednisolone Sodium Succinate (Solu-Medrol) 40 mg Q6 IV Last administered on 10/03/16 12:10; Admin Dose 40 MG; Start 10/02/16 at 14:00 DELORIS GONZALEZ Oct 03, 2016 15:17
[2016-10-03 19:58] VITALS: BP 129/73; RESP 16
[2016-10-04] MEDS: METHYLPREDNISOLONE 40 MG INJ IV SCH ×5 (00:34→23:23)
[2016-10-04] MEDS: CEFTRIAXONE 1 GM/50 ML (PMX) 50 ML IVPB SCH (07:23)
[2016-10-04 08:05] VITALS: BP 115/84; RESP 18
[2016-10-04] MEDS: ALBUTEROL/IPRATROPIUM (NEB) 3 ML AMP HHN SCH ×3 (08:19→20:56)
[2016-10-04] MEDS: SALMETEROL/FLUTICASONE 250/50 INHA INH SCH ×2 (08:28→21:00)
[2016-10-04] MEDS: AZITHROMYCIN 500MG/NS (PMX) 250 ML IV SCH (08:28)
[2016-10-04] MEDS: FAMOTIDINE 20 MG TAB PO SCH ×2 (08:28→21:01)
[2016-10-04] MEDS: HYDROCODONE/APAP (10/325) TAB PO PRN ×3 (08:28→23:22)
[2016-10-04] MEDS: LORATADINE/PSEUDOEPHED (SR) TAB PO SCH ×2 (08:28→21:00)
[2016-10-04] MEDS: SENNA TAB PO SCH (08:28)
[2016-10-04] MEDS: GUAIFENESIN LA 600 MG TABSR PO SCH ×2 (08:28→21:00)
[2016-10-04] MEDS: BENZONATATE 100 MG CAP PO SCH ×3 (09:00→21:01)
--- NOTE | 2016-10-04 11:36 | PN ---
DATE: 10/04/2016 TIME OF EVALUATION: 10:45 a.m. SUBJECTIVE DATA: Complains of chest wall pain. Complains of frequent productive cough. OBJECTIVE: VITAL SIGNS: Temperature 98.2, pulse rate of 97, respiratory rate 20, blood pressure 115/84, oxygen saturation 98% on low flow O2. GENERAL: Well-developed, well-nourished female patient lying in bed in no apparent distress. HEENT: Head normocephalic and atraumatic. Eyes: Anicteric sclerae. Conjunctivae clear. ENT: Nasal septum is midline. Oral mucosa is moist. NECK: Supple. No JVD noticed. RESPIRATORY: Bilaterally diminished breath sounds. Occasional rhonchi heard. No use of accessory muscles of respiration. CARDIAC: Regular rate and rhythm. ABDOMEN: Soft, nontender, nondistended. Bowel sounds hypoactive in all 4 quadrants. GENITOURINARY: Deferred. EXTREMITIES: No cyanosis, no clubbing, no edema. Peripheral pulses palpable. NEUROLOGIC: The patient is awake, alert, and oriented. Cranial nerves are grossly intact. LABORATORY AND DIAGNOSTIC DATA: None for today. ASSESSMENT AND PLAN: 1. Community-acquired pneumonia. Continue antibiotic therapy, improving. 2. Acute bronchitis with underlying sinusitis. Continue inhaled bronchodilators. Continue tapering dose of steroids. The patient is being followed by a drawing box tender. 3. Nicotine use. Cessation advised. 4. Leukocytosis. Possibly secondary to steroid use. Continue to monitor. 5. Fluid, electrolytes, and nutrition. Regular diet as tolerated. 6. Deep venous thrombosis prophylaxis. Bilateral sequential compression devices. 7. Gastrointestinal prophylaxis. Histamine 2 receptor blockers. Plan: Continue current management. Await on clearance from pulmonology before discharge. The case was discussed with Dr. Walters. EVERETT WALTERS MD, AM/ELIER Conf#: [id number] DID#: [id number]
[2016-10-04 12:13] LABS: ADD SCAN DIFF NO
[2016-10-04] MEDS: SOD CHLORIDE 0.9% 1,000 ML IV SCH (12:17)
[2016-10-04 12:22] LABS: ABNORMAL IP MESSAGE 1; BASOPHILS % 0.2 % (0.0-2.0); HEMATOCRIT 36.7 % (37.0-47.0); HEMOGLOBIN 12.3 g/dl (12.0-16.0); LYMPHOCYTES # 0.8 10^3/ul (0.8-2.9); LYMPHOCYTES % 4.4 % (15.0-51.0); MEAN CORPUSCULAR HEMOGLOBIN 30.1 pg (29.0-33.0); MEAN CORPUSCULAR HGB CONC 33.5 g/dl (32.0-37.0); MEAN PLATELET VOLUME 8.3 fl (7.4-10.4); MONOCYTE # 1.8 10^3/ul (0.3-0.9); NEUTROPHIL # 14.7 10^3/ul (1.6-7.5); PLATELET COUNT 646 10^3/UL (140-415); RED BLOOD COUNT 4.08 10^6/ul (4.20-5.40); RED CELL DISTRIBUTION WIDTH 12.8 % (11.5-14.5); WHITE BLOOD COUNT 17.5 10^3/ul (4.8-10.8)
[2016-10-04] MEDS: ONDANSETRON 4 MG INJ IV PRN (23:23)
[2016-10-05] MEDS: SOD CHLORIDE 0.9% 1,000 ML IV SCH ×3 (04:20→21:09)
[2016-10-05] MEDS: METHYLPREDNISOLONE 40 MG INJ IV SCH (06:00)
[2016-10-05 06:15] LABS: ADD SCAN DIFF NO
[2016-10-05 06:27] LABS: BASOPHILS % 0.2 % (0.0-2.0); HEMATOCRIT 38.9 % (37.0-47.0); HEMOGLOBIN 12.8 g/dl (12.0-16.0); LYMPHOCYTES % 6.5 % (15.0-51.0); MEAN CORPUSCULAR HEMOGLOBIN 29.7 pg (29.0-33.0); MEAN CORPUSCULAR HGB CONC 32.9 g/dl (32.0-37.0); MEAN CORPUSCULAR VOLUME 90.3 fl (82.0-101.0); MEAN PLATELET VOLUME 8.4 fl (7.4-10.4); MONOCYTE # 1.1 10^3/ul (0.3-0.9); MONOCYTES % 6.7 % (0.0-11.0); NEUTROPHIL # 13.3 10^3/ul (1.6-7.5); NEUTROPHILS % 85.3 % (39.0-77.0); PLATELET COUNT 585 10^3/UL (140-415); RED BLOOD COUNT 4.31 10^6/ul (4.20-5.40); WHITE BLOOD COUNT 15.6 10^3/ul (4.8-10.8)
[2016-10-05 06:54] LABS: POTASSIUM 4.2 mmol/L (3.5-5.1)
[2016-10-05 06:57] LABS: CREATININE 0.53 mg/dl (0.44-1.00)
[2016-10-05 07:21] VITALS: BP 127/74; RESP 18
[2016-10-05] MEDS: GUAIFENESIN LA 600 MG TABSR PO SCH ×2 (08:24→21:08)
[2016-10-05] MEDS: SENNA TAB PO SCH (08:24)
[2016-10-05] MEDS: LORATADINE/PSEUDOEPHED (SR) TAB PO SCH ×2 (08:25→21:08)
[2016-10-05] MEDS: BENZONATATE 100 MG CAP PO SCH ×3 (08:25→21:08)
[2016-10-05] MEDS: FAMOTIDINE 20 MG TAB PO SCH ×2 (08:25→21:07)
[2016-10-05] MEDS: CEFTRIAXONE 1 GM/50 ML (PMX) 50 ML IVPB SCH (08:25)
[2016-10-05] MEDS: AZITHROMYCIN 500MG/NS (PMX) 250 ML IV SCH (08:25)
[2016-10-05] MEDS: SALMETEROL/FLUTICASONE 250/50 INHA INH SCH ×2 (08:26→21:07)
[2016-10-05] MEDS: HYDROCODONE/APAP (10/325) TAB PO PRN ×2 (08:28→18:49)
[2016-10-05] MEDS: ALBUTEROL/IPRATROPIUM (NEB) 3 ML AMP HHN SCH ×3 (09:14→21:28)
--- NOTE | 2016-10-05 10:19 | CONS ---
Date/Time of Note Date/Time of Note DATE: 10/05/16 TIME: 10:17 Assessment/Plan Assessment/Plan Additional Assessment/Plan Assessment recommendations; 1. Patient admitted for severe bronchitis with bilateral wheezing 2. Sinusitis likely acute on chronic. 3. History of SLE. 4. Intolerance to high-dose systemic steroids. Discontinue Solu-Medrol. Start the patient on prednisone 30 mg a day. Add Flonase as well as Pulmicort 0.5 mg twice daily. Continue other medications. Consultation Date/Type/Reason Admit Date/Time Sep 27, 2016 at 05:34 Type of Consultation: pulmonary 24 HR Interval Summary Free Text/Dictation Patient condition is very minimally improved. Still complains of significant chest congestion wheezing postnasal drip. Shortness of breath has improved. Patient does have intolerance to high-dose systemic steroids and according to her she gets leg numbness generalized weakness severe anxiety. General exam; young woman, awake alert currently in no distress. Exam/Review of Systems Vital Signs Vitals Vital Signs Date Time Temp Pulse Resp B/P Pulse Ox O2 Delivery O2 Flow Rate FiO2 10/05/16 07:21 98.2 86 18 127/74 96 10/04/16 20:58 21 10/03/16 08:00 Nasal Cannula 10/03/16 01:58 2.0 Intake and Output 10/04/16 10/04/16 10/05/16 15:00 23:00 07:00 Intake Total 750 ml 375 ml 1475 ml Balance 750 ml 375 ml 1475 ml Exam HEENT exam is; supple neck, no JVD. No lymphadenopathy. Midline trachea. No thyromegaly. Pharynx is clear. Patient has good dentition. Chest examination; diminished breath sound bilaterally with very minimal expiratory wheezing in the lung bases bilaterally. S1-S2 audible, no murmurs. Regular rhythm. Abdomen examination; is benign. Extremity examination no peripheral edema. STRINGING MACHINE OPERATOR examination; no focal deficit. Results Result Diagram: 10/05/16 0533 10/05/1633 Results 24 hrs Laboratory Tests Test 10/04/16 11:20 10/05/16 05:33 White Blood Count 17.5 H 15.6 H Red Blood Count 4.08 L 4.31 Hemoglobin 12.3 12.8 Hematocrit 36.7 L 38.9 Mean Corpuscular Volume 90.0 90.3 Mean Corpuscular Hemoglobin 30.1 29.7 Mean Corpuscular Hemoglobin Concent 33.5 32.9 Red Cell Distribution Width 12.8 13.0 Platelet Count 646 H 585 H Mean Platelet Volume 8.3 8.4 Neutrophils % 84.0 H 85.3 H Lymphocytes % 4.4 L 6.5 L Monocytes % 10.0 6.7 Eosinophils % 0.0 0.0 Basophils % 0.2 0.2 Nucleated Red Blood Cells % 0.0 0.0 Neutrophils # 14.7 H 13.3 H Lymphocytes # 0.8 1.0 Monocytes # 1.8 H 1.1 H Eosinophils # 0.0 0.0 Basophils # 0.0 0.0 Nucleated Red Blood Cells # 0.0 0.0 Sodium Level 139 Potassium Level 4.2 Chloride Level 102 Carbon Dioxide Level 25 Anion Gap 16 Blood Urea Nitrogen 9 Creatinine 0.53 Glucose Level 118 Calcium Level 9.0 Magnesium Level 2.1 Medications Medications Current Medications Ondansetron HCl 4 mg 4 mg Q6H PRN IV NAUSEA AND/OR VOMITING Last administered on 10/04/16 23:23; Admin Dose 4 MG; Start 09/27/16 at 06:30 Ceftriaxone Sodium 50 ml @ 100 mls/hr Q24H IVPB Last administered on 10/05/16 08:25; Admin Dose 100 MLS/HR; Start 09/27/16 at 08:00 Azithromycin (Zithromax 500mg/ NS (Pmx)) 250 ml @ 250 mls/hr Q24H IV Last administered on 10/05/16 08:25; Admin Dose 250 MLS/HR; Start 09/27/16 at 08:00 Ondansetron HCl (Zofran Tab) 4 mg Q6H PRN PO NAUSEA AND/OR VOMITING Last administered on 10/03/16 22:27; Admin Dose 4 MG; Start 09/27/16 at 08:00 Metoclopramide HCl (Reglan) 10 mg Q6H PRN IV NAUSEA AND/OR VOMITING; Start at 08:00 Acetaminophen (Tylenol Tab) 650 mg Q6H PRN PO PAIN LEVEL 1-3 OR FEVER; Start at 08:00 Famotidine (Pepcid) 20 mg Q12 PO Last administered on 10/05/16 08:25; Admin Dose 20 MG; Start 09/27/16 at 09:00 Guaifenesin/ Codeine Phosphate (Robitussin Ac Liquid Cup) 10 ml Q4H PRN PO COUGH Last administered on 10/02/16 02:28; Admin Dose 10 ML; Start 09/28/16 at 22:00 Salmeterol Xinafoate/ Fluticasone (Advair 250/50 Diskus) 1 inh BID INH Last administered on 10/05/16 08:26; Admin Dose 1 INH; Start 09/28/16 at 10:30 Morphine Sulfate 2 mg 2 mg Q4H PRN IV pain Last administered on 10/02/16 05:57 ; Admin Dose 2 MG; Start 09/28/16 at 10:00 Sodium Chloride (NS) 1,000 ml @ 75 mls/hr [id number] IV Last administered on 04:20; Admin Dose 75 MLS/HR; Start 09/28/16 at 10:00 Benzonatate (Tessalon) 200 mg TID PO Last administered on 10/05/16 08:25; Admin Dose 200 MG; Start 09/29/16 at 13:00 Senna (Senokot) 2 tab DAILY PO Last administered on 10/05/16 08:24; Admin Dose 2 TAB; Start 09/29/16 at 10:30 Magnesium Hydroxide (Milk Of Mag) 30 ml BID PRN PO CONSTIPATION; Start at 10:30 Guaifenesin (Mucinex) 600 mg BID PO Last administered on 10/05/16 08:24; Admin Dose 600 MG; Start 10/02/16 at 12:00 Loratadine/ Pseudoephedrine Sulfate (Claritin-D 12 Hr) 1 tab Q12 PO Last administered on 10/05/16 08:25; Admin Dose 1 TAB; Start 10/02/16 at 12:00 Acetaminophen/ Hydrocodone Bitart ([place] (10/325)) 1 tab Q4H PRN PO PAIN; Start 10/02/16 at 12:30 Acetaminophen/ Hydrocodone Bitart ([place] (10/325)) 2 tab Q4H PRN PO SEVERE PAIN Last administered on 10/05/16 08:28; Admin Dose 2 TAB; Start 10/02/16 at 12 :30 Methylprednisolone Sodium Succinate (Solu-Medrol) 40 mg Q6 IV Last administered on 10/04/16t 23:23; Admin Dose 40 MG; Start 10/02/16 at 14:00; Status Future Hold SUSAN CURRIE October 05, 2016 10:19
[2016-10-05] MEDS: FLUTICASONE 0.05% 16 GM NAS SPRAY NASAL SCH ×2 (11:51→21:07)
[2016-10-05] MEDS: predniSONE 10 MG TAB PO SCH (11:51)
[2016-10-05] MEDS: BUDESONIDE (NEB) 0.5MG/2ML AMP HHN SCH ×2 (12:11→21:19)
[2016-10-05] MEDS: ALPRAZOLAM 1 MG TAB PO PRN (14:31)
--- NOTE | 2016-10-05 15:25 | PN ---
Date/Time of Note Date/Time of Note DATE: 10/05/16 TIME: 15:24 Assessment/Plan VTE Prophylaxis VTE Prophylaxis Intervention: SCD's Lines/Catheters IV C[facility]ter Type (from [facility]): Peripheral IV Urinary Cath still in place: No Assessment/Plan Chief Complaint/Hosp Course 1. Community-acquired pneumonia. Continue antibiotic therapy, improving. 2. Acute bronchitis with underlying sinusitis. Continue inhaled bronchodilators. Continue tapering dose of steroids. The patient is being followed by a operations expert. 3. Nicotine use. Cessation advised. 4. Leukocytosis. Possibly secondary to steroid use. Continue to monitor. 5. Recently diagnosed systemic lupus erythematosus. Monitor. 6. Fluid, electrolytes, and nutrition. Regular diet as tolerated. 7. Deep venous thrombosis prophylaxis. Bilateral sequential compression devices. 8. Gastrointestinal prophylaxis. Histamine 2 receptor blockers. Plan: Continue current management. Await on clearance from pulmonology before discharge. The case was discussed with Dr. Swan. Problems: Subjective 24 Hr Interval Summary Free Text/Dictation Complains of frequent coughing spells Exam/Review of Systems Vital Signs Vitals Vital Signs Date Time Temp Pulse Resp B/P Pulse Ox O2 Delivery O2 Flow Rate FiO2 10/05/16 12:15 90 20 99 10/05/16 07:21 98.2 127/74 10/04/16 20:58 21 10/03/16 08:00 Nasal Cannula 10/03/16 01:58 2.0 Intake and Output 10/04/16 10/04/16 10/05/16 15:00 23:00 07:00 Intake Total 750 ml 375 ml 1475 ml Balance 750 ml 375 ml 1475 ml Exam GENERAL: Well-developed, well-nourished female patient lying in bed in no apparent distress. HEENT: Head normocephalic and atraumatic. Eyes: Anicteric sclerae. Conjunctivae clear. ENT: Nasal septum is midline. Oral mucosa is moist. NECK: Supple. No JVD noticed. RESPIRATORY: Bilaterally diminished breath sounds. Occasional rhonchi heard. No use of accessory muscles of respiration. CARDIAC: Regular rate and rhythm. ABDOMEN: Soft, nontender, nondistended. Bowel sounds hypoactive in all 4 quadrants. GENITOURINARY: Deferred. EXTREMITIES: No cyanosis, no clubbing, no edema. Peripheral pulses palpable. NEUROLOGIC: The patient is awake, alert, and oriented. Cranial nerves are grossly intact. Results Result Diagram: 10/05/1633 10/05/16 0533 Results 24 hrs Laboratory Tests Test 10/05/16 05:33 White Blood Count 15.6 H Red Blood Count 4.31 Hemoglobin 12.8 Hematocrit 38.9 Mean Corpuscular Volume 90.3 Mean Corpuscular Hemoglobin 29.7 Mean Corpuscular Hemoglobin Concent 32.9 Red Cell Distribution Width 13.0 Platelet Count 585 H Mean Platelet Volume 8.4 Neutrophils % 85.3 H Lymphocytes % 6.5 L Monocytes % 6.7 Eosinophils % 0.0 Basophils % 0.2 Nucleated Red Blood Cells % 0.0 Neutrophils # 13.3 H Lymphocytes # 1.0 Monocytes # 1.1 H Eosinophils # 0.0 Basophils # 0.0 Nucleated Red Blood Cells # 0.0 Sodium Level 139 Potassium Level 4.2 Chloride Level 102 Carbon Dioxide Level 25 Anion Gap 16 Blood Urea Nitrogen 9 Creatinine 0.53 Glucose Level 118 Calcium Level 9.0 Magnesium Level 2.1 Medications Medications Current Medications Ondansetron HCl 4 mg 4 mg Q6H PRN IV NAUSEA AND/OR VOMITING Last administered on 10/04/16 23:23; Admin Dose 4 MG; Start 09/27/16 at 06:30 Ceftriaxone Sodium 50 ml @ 100 mls/hr Q24H IVPB Last administered on 10/05/16 08:25; Admin Dose 100 MLS/HR; Start 09/27/16 at 08:00 Azithromycin (Zithromax 500mg/ NS (Pmx)) 250 ml @ 250 mls/hr Q24H IV Last administered on 10/05/16 08:25; Admin Dose 250 MLS/HR; Start 09/27/16 at 08:00 Ondansetron HCl (Zofran Tab) 4 mg Q6H PRN PO NAUSEA AND/OR VOMITING Last administered on 10/03/16 22:27; Admin Dose 4 MG; Start 09/27/16 at 08:00 Metoclopramide HCl (Reglan) 10 mg Q6H PRN IV NAUSEA AND/OR VOMITING; Start at 08:00 Acetaminophen (Tylenol Tab) 650 mg Q6H PRN PO PAIN LEVEL 1-3 OR FEVER; Start at 08:00 Famotidine (Pepcid) 20 mg Q12 PO Last administered on 10/05/16 08:25; Admin Dose 20 MG; Start 09/27/16 at 09:00 Guaifenesin/ Codeine Phosphate (Robitussin Ac Liquid Cup) 10 ml Q4H PRN PO COUGH Last administered on 10/02/16 02:28; Admin Dose 10 ML; Start 09/28/16 at 22:00 Salmeterol Xinafoate/ Fluticasone (Advair 250/50 Diskus) 1 inh BID INH Last administered on 10/05/16 08:26; Admin Dose 1 INH; Start 09/28/16 at 10:30 Morphine Sulfate 2 mg 2 mg Q4H PRN IV pain Last administered on 10/02/16 05:57 ; Admin Dose 2 MG; Start 09/28/16 at 10:00 Sodium Chloride (NS) 1,000 ml @ 75 mls/hr [id number] IV Last administered on 04:20; Admin Dose 75 MLS/HR; Start 09/28/16 at 10:00 Benzonatate (Tessalon) 200 mg TID PO Last administered on 10/05/16 13:46; Admin Dose 200 MG; Start 09/29/16 at 13:00 Senna (Senokot) 2 tab DAILY PO Last administered on 10/05/16 08:24; Admin Dose 2 TAB; Start 09/29/16 at 10:30 Magnesium Hydroxide (Milk Of Mag) 30 ml BID PRN PO CONSTIPATION; Start at 10:30 Guaifenesin (Mucinex) 600 mg BID PO Last administered on 10/05/16 08:24; Admin Dose 600 MG; Start 10/02/16 at 12:00 Loratadine/ Pseudoephedrine Sulfate (Claritin-D 12 Hr) 1 tab Q12 PO Last administered on 10/05/16 08:25; Admin Dose 1 TAB; Start 10/02/16 at 12:00 Acetaminophen/ Hydrocodone Bitart ([place] (10/325)) 1 tab Q4H PRN PO PAIN; Start 10/02/16 at 12:30 Acetaminophen/ Hydrocodone Bitart ([place] (10/325)) 2 tab Q4H PRN PO SEVERE PAIN Last administered on 10/05/16 08:28; Admin Dose 2 TAB; Start 10/02/16 at 12 :30 Prednisone (Prednisone) 30 mg DAILY PO Last administered on 10/05/16 11:51; Admin Dose 30 MG; Start 10/05/16 at 10:30 Fluticasone Propionate (Flonase 0.05% Nasal) 1 spray BID NASAL Last administered on 10/05/16 11:51; Admin Dose 1 SPRAY; Start 10/05/16 at 11:30 Alprazolam (Xanax) 1 mg BID PRN PO ANXIETY Last administered on 10/05/16 14:31 ; Admin Dose 1 MG; Start 10/05/16 at 14:00 EVERETT BLUE NP October 05, 2016 15:25
[2016-10-05 19:25] VITALS: BP 127/82; RESP 18
[2016-10-06] MEDS: ALPRAZOLAM 1 MG TAB PO PRN ×2 (00:21→23:37)
[2016-10-06] MEDS: SOD CHLORIDE 0.9% 1,000 ML IV SCH ×2 (02:59→12:16)
[2016-10-06 05:43] LABS: ADD SCAN DIFF NO
[2016-10-06 06:22] LABS: BASOPHILS % 0.2 % (0.0-2.0); EOSINOPHILS # 0.1 10^3/ul (0.0-0.5); EOSINOPHILS % 0.5 % (0.0-7.0); HEMATOCRIT 35.2 % (37.0-47.0); HEMOGLOBIN 11.4 g/dl (12.0-16.0); LYMPHOCYTES # 2.6 10^3/ul (0.8-2.9); LYMPHOCYTES % 26.9 % (15.0-51.0); MEAN CORPUSCULAR HEMOGLOBIN 29.2 pg (29.0-33.0); MEAN CORPUSCULAR HGB CONC 32.4 g/dl (32.0-37.0); MEAN CORPUSCULAR VOLUME 90.3 fl (82.0-101.0); MEAN PLATELET VOLUME 8.4 fl (7.4-10.4); MONOCYTE # 1.2 10^3/ul (0.3-0.9); MONOCYTES % 12.8 % (0.0-11.0); NEUTROPHIL # 5.4 10^3/ul (1.6-7.5); NEUTROPHILS % 56.9 % (39.0-77.0); PLATELET COUNT 546 10^3/UL (140-415); RED CELL DISTRIBUTION WIDTH 13.2 % (11.5-14.5); WHITE BLOOD COUNT 9.5 10^3/ul (4.8-10.8)
[2016-10-06 06:24] LABS: CALCIUM 8.7 mg/dl (8.4-10.2); CREATININE 0.55 mg/dl (0.44-1.00)
[2016-10-06 07:57] VITALS: BP 126/76; RESP 20
[2016-10-06] MEDS: CEFTRIAXONE 1 GM/50 ML (PMX) 50 ML IVPB SCH (08:08)
[2016-10-06] MEDS: GUAIFENESIN LA 600 MG TABSR PO SCH ×2 (08:10→20:54)
[2016-10-06] MEDS: LORATADINE/PSEUDOEPHED (SR) TAB PO SCH ×2 (08:10→20:53)
[2016-10-06] MEDS: predniSONE 10 MG TAB PO SCH (08:10)
[2016-10-06] MEDS: BENZONATATE 100 MG CAP PO SCH ×3 (08:10→20:54)
[2016-10-06] MEDS: SALMETEROL/FLUTICASONE 250/50 INHA INH SCH ×2 (08:12→20:53)
[2016-10-06] MEDS: FLUTICASONE 0.05% 16 GM NAS SPRAY NASAL SCH ×2 (08:12→20:53)
[2016-10-06] MEDS: FAMOTIDINE 20 MG TAB PO SCH ×2 (08:13→20:54)
[2016-10-06] MEDS: SENNA TAB PO SCH (08:13)
[2016-10-06] MEDS: AZITHROMYCIN 500MG/NS (PMX) 250 ML IV SCH (08:13)
[2016-10-06] MEDS: HYDROCODONE/APAP (10/325) TAB PO PRN ×3 (08:23→20:54)
[2016-10-06] MEDS: ALBUTEROL/IPRATROPIUM (NEB) 3 ML AMP HHN SCH ×3 (08:24→19:48)
[2016-10-06] MEDS: BUDESONIDE (NEB) 0.5MG/2ML AMP HHN SCH ×2 (08:25→19:48)
--- NOTE | 2016-10-06 10:51 | PN ---
Date/Time of Note Date/Time of Note DATE: 10/06/16 TIME: 10:50 Assessment/Plan VTE Prophylaxis VTE Prophylaxis Intervention: SCD's Lines/Catheters [facility] ([facility] Peripheral IV Urinary Cath still in place: No Assessment/Plan Chief Complaint/Hosp Course 1. Community-acquired pneumonia. Continue antibiotic therapy, improving. 2. Acute bronchitis with underlying sinusitis. Continue inhaled bronchodilators. Continue tapering dose of steroids. The patient is being followed by a wall steamer. 3. Nicotine use. Cessation advised. 4. Leukocytosis. Possibly secondary to steroid use. Resolved. 5. Recently diagnosed systemic lupus erythematosus. Monitor. 6. Fluid, electrolytes, and nutrition. Regular diet as tolerated. 7. Deep venous thrombosis prophylaxis. Bilateral sequential compression devices. 8. Gastrointestinal prophylaxis. Histamine 2 receptor blockers. Plan: Continue current management. Await on clearance from pulmonology before discharge. The case was discussed with Dr. Swan. Problems: Subjective 24 Hr Interval Summary Free Text/Dictation Feeling a little better. Exam/Review of Systems Vital Signs Vitals Vital Signs Date Time Temp Pulse Resp B/P Pulse Ox O2 Delivery O2 Flow Rate FiO2 10/06/16 08:27 98 18 99 21 10/06/16 07:57 97.9 126/76 10/03/16 08:00 Nasal Cannula 10/03/16 01:58 2.0 Intake and Output 10/05/16 10/05/16 10/06/16 15:00 23:00 07:00 Intake Total 300 ml 2370 ml 1000 ml Balance 300 ml 2370 ml 1000 ml Exam GENERAL: Well-developed, well-nourished female patient lying in bed in no apparent distress. HEENT: Head normocephalic and atraumatic. Eyes: Anicteric sclerae. Conjunctivae clear. ENT: Nasal septum is midline. Oral mucosa is moist. NECK: Supple. No JVD noticed. RESPIRATORY: Bilaterally diminished breath sounds. Occasional rhonchi heard. No use of accessory muscles of respiration. CARDIAC: Regular rate and rhythm. ABDOMEN: Soft, nontender, nondistended. Bowel sounds hypoactive in all 4 quadrants. GENITOURINARY: Deferred. EXTREMITIES: No cyanosis, no clubbing, no edema. Peripheral pulses palpable. NEUROLOGIC: The patient is awake, alert, and oriented. Cranial nerves are grossly intact. Results Result Diagram: 10/06/1620 10/06/1620 Results 24 hrs Laboratory Tests Test 10/06/16 05:20 10/06/16 06:36 White Blood Count 9.5 # Red Blood Count 3.90 L Hemoglobin 11.4 L Hematocrit 35.2 L Mean Corpuscular Volume 90.3 Mean Corpuscular Hemoglobin 29.2 Mean Corpuscular Hemoglobin Concent 32.4 Red Cell Distribution Width 13.2 Platelet Count 546 H Mean Platelet Volume 8.4 Neutrophils % 56.9 Lymphocytes % 26.9 Monocytes % 12.8 H Eosinophils % 0.5 Basophils % 0.2 Nucleated Red Blood Cells % 0.0 Neutrophils # 5.4 Lymphocytes # 2.6 Monocytes # 1.2 H Eosinophils # 0.1 Basophils # 0.0 Nucleated Red Blood Cells # 0.0 Sodium Level 136 Potassium Level 4.0 Chloride Level 103 Carbon Dioxide Level 25 Anion Gap 12 Blood Urea Nitrogen 11 Creatinine 0.55 Glucose Level 90 Calcium Level 8.7 Magnesium Level 2.0 Lab Scanned Report REFERENCE LAB Medications Medications Current Medications Ondansetron HCl 4 mg 4 mg Q6H PRN IV NAUSEA AND/OR VOMITING Last administered on 10/04/16 23:23; Admin Dose 4 MG; Start 09/27/16 at 06:30 Ceftriaxone Sodium 50 ml @ 100 mls/hr Q24H IVPB Last administered on 10/06/16 08:08; Admin Dose 100 MLS/HR; Start 09/27/16 at 08:00 Azithromycin (Zithromax 500mg/ NS (Pmx)) 250 ml @ 250 mls/hr Q24H IV Last administered on 10/06/16 08:13; Admin Dose 250 MLS/HR; Start 09/27/16 at 08:00 Ondansetron HCl (Zofran Tab) 4 mg Q6H PRN PO NAUSEA AND/OR VOMITING Last administered on 10/03/16 22:27; Admin Dose 4 MG; Start 09/27/16 at 08:00 Metoclopramide HCl (Reglan) 10 mg Q6H PRN IV NAUSEA AND/OR VOMITING; Start at 08:00 Acetaminophen (Tylenol Tab) 650 mg Q6H PRN PO PAIN LEVEL 1-3 OR FEVER; Start at 08:00 Famotidine (Pepcid) 20 mg Q12 PO Last administered on 10/06/16 08:13; Admin Dose 20 MG; Start 09/27/16 at 09:00 Guaifenesin/ Codeine Phosphate (Robitussin Ac Liquid Cup) 10 ml Q4H PRN PO COUGH Last administered on 10/02/16 02:28; Admin Dose 10 ML; Start 09/28/16 at 22:00 Salmeterol Xinafoate/ Fluticasone (Advair 250/50 Diskus) 1 inh BID INH Last administered on 10/06/16 08:12; Admin Dose 1 INH; Start 09/28/16 at 10:30 Morphine Sulfate 2 mg 2 mg Q4H PRN IV pain Last administered on 10/02/16 05:57 ; Admin Dose 2 MG; Start 09/28/16 at 10:00 Sodium Chloride (NS) 1,000 ml @ 75 mls/hr [id number] IV Last administered on 21:09; Admin Dose 75 MLS/HR; Start 09/28/16 at 10:00 Benzonatate (Tessalon) 200 mg TID PO Last administered on 10/06/16 08:10; Admin Dose 200 MG; Start 09/29/16 at 13:00 Senna (Senokot) 2 tab DAILY PO Last administered on 10/06/16 08:13; Admin Dose 2 TAB; Start 09/29/16 at 10:30 Magnesium Hydroxide (Milk Of Mag) 30 ml BID PRN PO CONSTIPATION; Start at 10:30 Guaifenesin (Mucinex) 600 mg BID PO Last administered on 10/06/16 08:10; Admin Dose 600 MG; Start 10/02/16 at 12:00 Loratadine/ Pseudoephedrine Sulfate (Claritin-D 12 Hr) 1 tab Q12 PO Last administered on 10/06/16 08:10; Admin Dose 1 TAB; Start 10/02/16 at 12:00 Acetaminophen/ Hydrocodone Bitart ([place] (10/325)) 1 tab Q4H PRN PO PAIN; Start 10/02/16 at 12:30 Acetaminophen/ Hydrocodone Bitart ([place] (10/325)) 2 tab Q4H PRN PO SEVERE PAIN Last administered on 10/06/16 08:23; Admin Dose 2 TAB; Start 10/02/16 at 12 :30 Prednisone (Prednisone) 30 mg DAILY PO Last administered on 10/06/16 08:10; Admin Dose 30 MG; Start 10/05/16 at 10:30 Fluticasone Propionate (Flonase 0.05% Nasal) 1 spray BID NASAL Last administered on 10/06/16 08:12; Admin Dose 1 SPRAY; Start 10/05/16 at 11:30 Alprazolam (Xanax) 1 mg BID PRN PO ANXIETY Last administered on 10/06/16 00:21 ; Admin Dose 1 MG; Start 10/05/16 at 14:00 EVERETT BLUE NP October 06, 2016 10:51
--- NOTE | 2016-10-06 11:13 | CONS ---
Date/Time of Note Date/Time of Note DATE: 10/06/16 TIME: 11:11 Assessment/Plan Assessment/Plan Additional Assessment/Plan Assessment recommendations; 1. Patient admitted for severe acute bronchitis and sinusitis possibly some element of bronchiolitis as well. 2. Slow clinical improvement. 3. History of SLE. 4. Intolerance to high-dose systemic steroids. Patient switched over to prednisone 30 mg daily yesterday. Continue current treatment. Consultation Date/Type/Reason Admit Date/Time Sep 27, 2016 at 05:34 Type of Consultation: pulmonary 24 HR Interval Summary Free Text/Dictation Patient condition is improved. With decreased chest congestion still, no wheezing and coughing. General exam; young woman, awake alert currently in no distress. Exam/Review of Systems Vital Signs Vitals Vital Signs Date Time Temp Pulse Resp B/P Pulse Ox O2 Delivery O2 Flow Rate FiO2 10/06/16 08:27 98 18 99 21 10/06/16 07:57 97.9 126/76 10/03/16 08:00 Nasal Cannula 10/03/16 01:58 2.0 Intake and Output 10/05/16 10/05/16 10/06/16 15:00 23:00 07:00 Intake Total 300 ml 2370 ml 1000 ml Balance 300 ml 2370 ml 1000 ml Exam HEENT exam is; supple neck, no JVD. No lymphadenopathy. Midline trachea. No thyromegaly. Pharynx is clear. Chest examination; bilateral expiratory wheezing lower lobe. S1-S2 audible, no murmurs. Regular rhythm. Abdomen examination; is benign. Extremity examination; no edema. SCREENING UNIT REGISTERED NURSE examination; no focal deficit. Results Result Diagram: 10/06/16 0520 10/06/16 0520 Results 24 hrs Laboratory Tests Test 10/06/16 05:20 10/06/16 06:36 White Blood Count 9.5 # Red Blood Count 3.90 L Hemoglobin 11.4 L Hematocrit 35.2 L Mean Corpuscular Volume 90.3 Mean Corpuscular Hemoglobin 29.2 Mean Corpuscular Hemoglobin Concent 32.4 Red Cell Distribution Width 13.2 Platelet Count 546 H Mean Platelet Volume 8.4 Neutrophils % 56.9 Lymphocytes % 26.9 Monocytes % 12.8 H Eosinophils % 0.5 Basophils % 0.2 Nucleated Red Blood Cells % 0.0 Neutrophils # 5.4 Lymphocytes # 2.6 Monocytes # 1.2 H Eosinophils # 0.1 Basophils # 0.0 Nucleated Red Blood Cells # 0.0 Sodium Level 136 Potassium Level 4.0 Chloride Level 103 Carbon Dioxide Level 25 Anion Gap 12 Blood Urea Nitrogen 11 Creatinine 0.55 Glucose Level 90 Calcium Level 8.7 Magnesium Level 2.0 Lab Scanned Report REFERENCE LAB Medications Medications Current Medications Ondansetron HCl 4 mg 4 mg Q6H PRN IV NAUSEA AND/OR VOMITING Last administered on 10/04/16 23:23; Admin Dose 4 MG; Start 09/27/16 at 06:30 Ceftriaxone Sodium 50 ml @ 100 mls/hr Q24H IVPB Last administered on 10/06/16 08:08; Admin Dose 100 MLS/HR; Start 09/27/16 at 08:00 Azithromycin (Zithromax 500mg/ NS (Pmx)) 250 ml @ 250 mls/hr Q24H IV Last administered on 10/06/16 08:13; Admin Dose 250 MLS/HR; Start 09/27/16 at 08:00 Ondansetron HCl (Zofran Tab) 4 mg Q6H PRN PO NAUSEA AND/OR VOMITING Last administered on 10/03/16 22:27; Admin Dose 4 MG; Start 09/27/16 at 08:00 Metoclopramide HCl (Reglan) 10 mg Q6H PRN IV NAUSEA AND/OR VOMITING; Start at 08:00 Acetaminophen (Tylenol Tab) 650 mg Q6H PRN PO PAIN LEVEL 1-3 OR FEVER; Start at 08:00 Famotidine (Pepcid) 20 mg Q12 PO Last administered on 10/06/16 08:13; Admin Dose 20 MG; Start 09/27/16 at 09:00 Guaifenesin/ Codeine Phosphate (Robitussin Ac Liquid Cup) 10 ml Q4H PRN PO COUGH Last administered on 10/02/16 02:28; Admin Dose 10 ML; Start 09/28/16 at 22:00 Salmeterol Xinafoate/ Fluticasone (Advair 250/50 Diskus) 1 inh BID INH Last administered on 10/06/16 08:12; Admin Dose 1 INH; Start 09/28/16 at 10:30 Morphine Sulfate 2 mg 2 mg Q4H PRN IV pain Last administered on 10/02/16 05:57 ; Admin Dose 2 MG; Start 09/28/16 at 10:00 Sodium Chloride (NS) 1,000 ml @ 75 mls/hr [id number] IV Last administered on 21:09; Admin Dose 75 MLS/HR; Start 09/28/16 at 10:00 Benzonatate (Tessalon) 200 mg TID PO Last administered on 10/06/16 08:10; Admin Dose 200 MG; Start 09/29/16 at 13:00 Senna (Senokot) 2 tab DAILY PO Last administered on 10/06/16 08:13; Admin Dose 2 TAB; Start 09/29/16 at 10:30 Magnesium Hydroxide (Milk Of Mag) 30 ml BID PRN PO CONSTIPATION; Start at 10:30 Guaifenesin (Mucinex) 600 mg BID PO Last administered on 10/06/16 08:10; Admin Dose 600 MG; Start 10/02/16 at 12:00 Loratadine/ Pseudoephedrine Sulfate (Claritin-D 12 Hr) 1 tab Q12 PO Last administered on 10/06/16 08:10; Admin Dose 1 TAB; Start 10/02/16 at 12:00 Acetaminophen/ Hydrocodone Bitart ([place] (10/325)) 1 tab Q4H PRN PO PAIN; Start 10/02/16 at 12:30 Acetaminophen/ Hydrocodone Bitart ([place] (10/325)) 2 tab Q4H PRN PO SEVERE PAIN Last administered on 10/06/16 08:23; Admin Dose 2 TAB; Start 10/02/16 at 12 :30 Prednisone (Prednisone) 30 mg DAILY PO Last administered on 10/06/16 08:10; Admin Dose 30 MG; Start 10/05/16 at 10:30 Fluticasone Propionate (Flonase 0.05% Nasal) 1 spray BID NASAL Last administered on 10/06/16 08:12; Admin Dose 1 SPRAY; Start 10/05/16 at 11:30 Alprazolam (Xanax) 1 mg BID PRN PO ANXIETY Last administered on 10/06/16 00:21 ; Admin Dose 1 MG; Start 10/05/16 at 14:00 SUSAN CURRIE October 06, 2016 11:13
[2016-10-06 19:43] VITALS: BP 131/78; RESP 18
[2016-10-07] MEDS: SOD CHLORIDE 0.9% 1,000 ML IV SCH ×4 (01:20→20:40)
[2016-10-07 07:00] LABS: ADD SCAN DIFF NO
[2016-10-07 07:06] LABS: BASOPHILS % 0.3 % (0.0-2.0); EOSINOPHILS # 0.1 10^3/ul (0.0-0.5); EOSINOPHILS % 1.4 % (0.0-7.0); HEMOGLOBIN 11.2 g/dl (12.0-16.0); LYMPHOCYTES # 2.9 10^3/ul (0.8-2.9); LYMPHOCYTES % 28.7 % (15.0-51.0); MEAN CORPUSCULAR HGB CONC 32.9 g/dl (32.0-37.0); MEAN CORPUSCULAR VOLUME 91.2 fl (82.0-101.0); MEAN PLATELET VOLUME 8.4 fl (7.4-10.4); MONOCYTE # 1.2 10^3/ul (0.3-0.9); MONOCYTES % 11.8 % (0.0-11.0); NEUTROPHIL # 5.6 10^3/ul (1.6-7.5); NEUTROPHILS % 55.1 % (39.0-77.0); PLATELET COUNT 524 10^3/UL (140-415); RED BLOOD COUNT 3.73 10^6/ul (4.20-5.40); RED CELL DISTRIBUTION WIDTH 13.4 % (11.5-14.5); WHITE BLOOD COUNT 10.1 10^3/ul (4.8-10.8)
[2016-10-07 07:38] LABS: CALCIUM 8.3 mg/dl (8.4-10.2); CREATININE 0.55 mg/dl (0.44-1.00); POTASSIUM 3.5 mmol/L (3.5-5.1)
[2016-10-07 07:54] VITALS: BP 122/78; RESP 16
[2016-10-07] MEDS: ALBUTEROL/IPRATROPIUM (NEB) 3 ML AMP HHN SCH ×3 (08:30→20:24)
[2016-10-07] MEDS: CEFTRIAXONE 1 GM/50 ML (PMX) 50 ML IVPB SCH (08:39)
[2016-10-07] MEDS: GUAIFENESIN LA 600 MG TABSR PO SCH ×2 (08:45→20:45)
[2016-10-07] MEDS: LORATADINE/PSEUDOEPHED (SR) TAB PO SCH ×2 (08:45→20:45)
[2016-10-07] MEDS: SENNA TAB PO SCH (08:45)
[2016-10-07] MEDS: FAMOTIDINE 20 MG TAB PO SCH ×2 (08:45→20:45)
[2016-10-07] MEDS: FLUTICASONE 0.05% 16 GM NAS SPRAY NASAL SCH ×2 (08:46→20:46)
[2016-10-07] MEDS: SALMETEROL/FLUTICASONE 250/50 INHA INH SCH ×2 (08:46→20:46)
[2016-10-07] MEDS: BENZONATATE 100 MG CAP PO SCH ×4 (08:46→23:17)
[2016-10-07] MEDS: BUDESONIDE (NEB) 0.5MG/2ML AMP HHN SCH ×2 (09:00→20:24)
[2016-10-07] MEDS: HYDROCODONE/APAP (10/325) TAB PO PRN ×2 (09:06→20:46)
[2016-10-07] MEDS: predniSONE 10 MG TAB PO SCH (09:13)
[2016-10-07] MEDS: AZITHROMYCIN 500MG/NS (PMX) 250 ML IV SCH (09:15)
--- NOTE | 2016-10-07 10:26 | PN ---
Date/Time of Note Date/Time of Note DATE: 10/07/16 TIME: 10:23 Assessment/Plan VTE Prophylaxis VTE Prophylaxis Intervention: SCD's Lines/Catheters IV [facility]ter Type (from [facility]): Peripheral IV Urinary Cath still in place: No Assessment/Plan Chief Complaint/Hosp Course 1. Community-acquired pneumonia. Continue antibiotic therapy, improving. 2. Acute bronchitis with underlying sinusitis. Continue inhaled bronchodilators. Continue tapering dose of steroids. The patient is being followed by a office lead. 3. Nicotine use. Cessation advised. 4. Leukocytosis. Possibly secondary to steroid use. Resolved. 5. Recently diagnosed systemic lupus erythematosus. Monitor. 6. Fluid, electrolytes, and nutrition. Regular diet as tolerated. 7. Deep venous thrombosis prophylaxis. Bilateral sequential compression devices. 8. Gastrointestinal prophylaxis. Histamine 2 receptor blockers. Plan: Continue current management. Await on clearance from pulmonology before discharge. The case was discussed with Dr. Swan. Problems: Subjective 24 Hr Interval Summary Free Text/Dictation Complains of frequent coughing spells. Exam/Review of Systems Vital Signs Vitals Vital Signs Date Time Temp Pulse Resp B/P Pulse Ox O2 Delivery O2 Flow Rate FiO2 10/07/16 07:54 98.2 92 16 122/78 98 10/06/16 19:48 21 10/03/16 08:00 Nasal Cannula Intake and Output 10/06/16 10/06/16 10/07/16 15:00 23:00 07:00 Intake Total 700 ml 1700 ml 1520 ml Balance 700 ml 1700 ml 1520 ml Exam GENERAL: Well-developed, well-nourished female patient lying in bed in no apparent distress. HEENT: Head normocephalic and atraumatic. Eyes: Anicteric sclerae. Conjunctivae clear. ENT: Nasal septum is midline. Oral mucosa is moist. NECK: Supple. No JVD noticed. RESPIRATORY: Bilaterally diminished breath sounds. Occasional rhonchi heard. No use of accessory muscles of respiration. CARDIAC: Regular rate and rhythm. ABDOMEN: Soft, nontender, nondistended. Bowel sounds hypoactive in all 4 quadrants. GENITOURINARY: Deferred. EXTREMITIES: No cyanosis, no clubbing, no edema. Peripheral pulses palpable. NEUROLOGIC: The patient is awake, alert, and oriented. Cranial nerves are grossly intact. Results Result Diagram: 10/07/16 0545 10/07/16 0545 Results 24 hrs Laboratory Tests Test 10/07/16 05:45 White Blood Count 10.1 Red Blood Count 3.73 L Hemoglobin 11.2 L Hematocrit 34.0 L Mean Corpuscular Volume 91.2 Mean Corpuscular Hemoglobin 30.0 Mean Corpuscular Hemoglobin Concent 32.9 Red Cell Distribution Width 13.4 Platelet Count 524 H Mean Platelet Volume 8.4 Neutrophils % 55.1 Lymphocytes % 28.7 Monocytes % 11.8 H Eosinophils % 1.4 Basophils % 0.3 Nucleated Red Blood Cells % 0.0 Neutrophils # 5.6 Lymphocytes # 2.9 Monocytes # 1.2 H Eosinophils # 0.1 Basophils # 0.0 Nucleated Red Blood Cells # 0.0 Sodium Level 134 L Potassium Level 3.5 Chloride Level 103 Carbon Dioxide Level 26 Anion Gap 9 Blood Urea Nitrogen 9 Creatinine 0.55 Glucose Level 83 Calcium Level 8.3 L Magnesium Level 1.9 Medications Medications Current Medications Ondansetron HCl 4 mg 4 mg Q6H PRN IV NAUSEA AND/OR VOMITING Last administered on 10/04/16 23:23; Admin Dose 4 MG; Start 09/27/16 at 06:30 Ceftriaxone Sodium 50 ml @ 100 mls/hr Q24H IVPB Last administered on 10/07/16 08:39; Admin Dose 100 MLS/HR; Start 09/27/16 at 08:00 Azithromycin (Zithromax 500mg/ NS (Pmx)) 250 ml @ 250 mls/hr Q24H IV Last administered on 10/07/16 09:15; Admin Dose 250 MLS/HR; Start 09/27/16 at 08:00 Ondansetron HCl (Zofran Tab) 4 mg Q6H PRN PO NAUSEA AND/OR VOMITING Last administered on 10/03/16 22:27; Admin Dose 4 MG; Start 09/27/16 at 08:00 Metoclopramide HCl (Reglan) 10 mg Q6H PRN IV NAUSEA AND/OR VOMITING; Start at 08:00 Acetaminophen (Tylenol Tab) 650 mg Q6H PRN PO PAIN LEVEL 1-3 OR FEVER; Start at 08:00 Famotidine (Pepcid) 20 mg Q12 PO Last administered on 10/07/16 08:45; Admin Dose 20 MG; Start 09/27/16 at 09:00 Guaifenesin/ Codeine Phosphate (Robitussin Ac Liquid Cup) 10 ml Q4H PRN PO COUGH Last administered on 10/02/16 02:28; Admin Dose 10 ML; Start 09/28/16 at 22:00 Salmeterol Xinafoate/ Fluticasone (Advair 250/50 Diskus) 1 inh BID INH Last administered on 10/07/16 08:46; Admin Dose 1 INH; Start 09/28/16 at 10:30 Morphine Sulfate 2 mg 2 mg Q4H PRN IV pain Last administered on 10/02/16 05:57 ; Admin Dose 2 MG; Start 09/28/16 at 10:00 Sodium Chloride (NS) 1,000 ml @ 75 mls/hr [id number] IV Last administered on 01:20; Admin Dose 75 MLS/HR; Start 09/28/16 at 10:00 Benzonatate (Tessalon) 200 mg TID PO Last administered on 10/07/16 08:46; Admin Dose 200 MG; Start 09/29/16 at 13:00 Senna (Senokot) 2 tab DAILY PO Last administered on 10/07/16 08:45; Admin Dose 2 TAB; Start 09/29/16 at 10:30 Magnesium Hydroxide (Milk Of Mag) 30 ml BID PRN PO CONSTIPATION; Start at 10:30 Guaifenesin (Mucinex) 600 mg BID PO Last administered on 10/07/16 08:45; Admin Dose 600 MG; Start 10/02/16 at 12:00 Loratadine/ Pseudoephedrine Sulfate (Claritin-D 12 Hr) 1 tab Q12 PO Last administered on 10/07/16 08:45; Admin Dose 1 TAB; Start 10/02/16 at 12:00 Acetaminophen/ Hydrocodone Bitart ([place] (10/325)) 1 tab Q4H PRN PO PAIN; Start 10/02/16 at 12:30 Acetaminophen/ Hydrocodone Bitart ([place] (10/325)) 2 tab Q4H PRN PO SEVERE PAIN Last administered on 10/07/16 09:06; Admin Dose 2 TAB; Start 10/02/16 at 12 :30 Prednisone (Prednisone) 30 mg DAILY PO Last administered on 10/07/16 09:13; Admin Dose 30 MG; Start 10/05/16 at 10:30 Fluticasone Propionate (Flonase 0.05% Nasal) 1 spray BID NASAL Last administered on 10/07/16 08:46; Admin Dose 1 SPRAY; Start 10/05/16 at 11:30 Alprazolam (Xanax) 1 mg BID PRN PO ANXIETY Last administered on 10/06/16 23:37 ; Admin Dose 1 MG; Start 10/05/16 at 14:00 EVERETT BLUE NP October 07, 2016 10:26
--- NOTE | 2016-10-07 11:43 | CONS ---
Date/Time of Note Date/Time of Note DATE: 10/07/16 TIME: 11:41 Assessment/Plan Assessment/Plan Additional Assessment/Plan Assessment recommendations; 1. Patient admitted with severe acute bronchitis with possibly bronchiolitis with significant improvement in lung examination. 2. Chronic and acute sinusitis with postnasal drip. Causing significant cough. Patient currently on inhaled nasal steroid, Claritin without any significant improvement over the last 24 hours. 3. SLE. 4. Patient with a history of continued smoking. Continue current treatment. Patient may need to have a CT scan of the sinuses performed on outpatient basis. Consultation Date/Type/Reason Admit Date/Time Sep 27, 2016 at 05:34 Type of Consultation: pulmonary 24 HR Interval Summary Free Text/Dictation Patient is complaining of increased throat congestion. Also complains of episodes of flutter off and on without any associated chest pain. Denies any fever chills. General exam; young woman, awake alert currently in no distress. Exam/Review of Systems Vital Signs Vitals Vital Signs Date Time Temp Pulse Resp B/P Pulse Ox O2 Delivery O2 Flow Rate FiO2 10/07/16 07:54 98.2 92 16 122/78 98 10/06/16 19:48 21 10/03/16 08:00 Nasal Cannula Intake and Output 10/06/16 10/06/16 10/07/16 15:00 23:00 07:00 Intake Total 700 ml 1700 ml 1520 ml Balance 700 ml 1700 ml 1520 ml Exam HEENT exam is; supple neck, no JVD. No lymphadenopathy. Midline trachea. Chest examination; clear to auscultation. No wheezing. S1-S2 audible, no murmurs. Regular rhythm. Abdomen examination; soft, Extremity examination; no peripheral edema. BATCH FREEZER OPERATOR examination; no focal deficit. Results Result Diagram: 10/07/16 0545 10/07/16 0545 Results 24 hrs Laboratory Tests Test 10/07/16 05:45 White Blood Count 10.1 Red Blood Count 3.73 L Hemoglobin 11.2 L Hematocrit 34.0 L Mean Corpuscular Volume 91.2 Mean Corpuscular Hemoglobin 30.0 Mean Corpuscular Hemoglobin Concent 32.9 Red Cell Distribution Width 13.4 Platelet Count 524 H Mean Platelet Volume 8.4 Neutrophils % 55.1 Lymphocytes % 28.7 Monocytes % 11.8 H Eosinophils % 1.4 Basophils % 0.3 Nucleated Red Blood Cells % 0.0 Neutrophils # 5.6 Lymphocytes # 2.9 Monocytes # 1.2 H Eosinophils # 0.1 Basophils # 0.0 Nucleated Red Blood Cells # 0.0 Sodium Level 134 L Potassium Level 3.5 Chloride Level 103 Carbon Dioxide Level 26 Anion Gap 9 Blood Urea Nitrogen 9 Creatinine 0.55 Glucose Level 83 Calcium Level 8.3 L Magnesium Level 1.9 Medications Medications Current Medications Ondansetron HCl 4 mg 4 mg Q6H PRN IV NAUSEA AND/OR VOMITING Last administered on 10/04/16 23:23; Admin Dose 4 MG; Start 09/27/16 at 06:30 Ceftriaxone Sodium 50 ml @ 100 mls/hr Q24H IVPB Last administered on 10/07/16 08:39; Admin Dose 100 MLS/HR; Start 09/27/16 at 08:00 Azithromycin (Zithromax 500mg/ NS (Pmx)) 250 ml @ 250 mls/hr Q24H IV Last administered on 10/07/16 09:15; Admin Dose 250 MLS/HR; Start 09/27/16 at 08:00 Ondansetron HCl (Zofran Tab) 4 mg Q6H PRN PO NAUSEA AND/OR VOMITING Last administered on 10/03/16 22:27; Admin Dose 4 MG; Start 09/27/16 at 08:00 Metoclopramide HCl (Reglan) 10 mg Q6H PRN IV NAUSEA AND/OR VOMITING; Start at 08:00 Acetaminophen (Tylenol Tab) 650 mg Q6H PRN PO PAIN LEVEL 1-3 OR FEVER; Start at 08:00 Famotidine (Pepcid) 20 mg Q12 PO Last administered on 10/07/16 08:45; Admin Dose 20 MG; Start 09/27/16 at 09:00 Guaifenesin/ Codeine Phosphate (Robitussin Ac Liquid Cup) 10 ml Q4H PRN PO COUGH Last administered on 10/02/16 02:28; Admin Dose 10 ML; Start 09/28/16 at 22:00 Salmeterol Xinafoate/ Fluticasone (Advair 250/50 Diskus) 1 inh BID INH Last administered on 10/07/16 08:46; Admin Dose 1 INH; Start 09/28/16 at 10:30 Morphine Sulfate 2 mg 2 mg Q4H PRN IV pain Last administered on 10/02/16 05:57 ; Admin Dose 2 MG; Start 09/28/16 at 10:00 Sodium Chloride (NS) 1,000 ml @ 75 mls/hr [id number] IV Last administered on 01:20; Admin Dose 75 MLS/HR; Start 09/28/16 at 10:00 Benzonatate (Tessalon) 200 mg TID PO Last administered on 10/07/16 08:46; Admin Dose 200 MG; Start 09/29/16 at 13:00 Senna (Senokot) 2 tab DAILY PO Last administered on 10/07/16 08:45; Admin Dose 2 TAB; Start 09/29/16 at 10:30 Magnesium Hydroxide (Milk Of Mag) 30 ml BID PRN PO CONSTIPATION; Start at 10:30 Guaifenesin (Mucinex) 600 mg BID PO Last administered on 10/07/16 08:45; Admin Dose 600 MG; Start 10/02/16 at 12:00 Loratadine/ Pseudoephedrine Sulfate (Claritin-D 12 Hr) 1 tab Q12 PO Last administered on 10/07/16 08:45; Admin Dose 1 TAB; Start 10/02/16 at 12:00 Acetaminophen/ Hydrocodone Bitart ([place] (10/325)) 1 tab Q4H PRN PO PAIN; Start 10/02/16 at 12:30 Acetaminophen/ Hydrocodone Bitart ([place] (10/325)) 2 tab Q4H PRN PO SEVERE PAIN Last administered on 10/07/16 09:06; Admin Dose 2 TAB; Start 10/02/16 at 12 :30 Prednisone (Prednisone) 30 mg DAILY PO Last administered on 10/07/16 09:13; Admin Dose 30 MG; Start 10/05/16 at 10:30 Fluticasone Propionate (Flonase 0.05% Nasal) 1 spray BID NASAL Last administered on 10/07/16 08:46; Admin Dose 1 SPRAY; Start 10/05/16 at 11:30 Alprazolam (Xanax) 1 mg BID PRN PO ANXIETY Last administered on 10/06/16 23:37 ; Admin Dose 1 MG; Start 10/05/16 at 14:00 SUSAN CURRIE October 07, 2016 11:43
[2016-10-07 19:23] VITALS: BP 133/70; RESP 18
[2016-10-08] MEDS: ALPRAZOLAM 1 MG TAB PO PRN (00:40)
[2016-10-08 07:47] VITALS: BP 121/82; RESP 18
[2016-10-08] MEDS: SOD CHLORIDE 0.9% 1,000 ML IV SCH ×2 (07:50→10:00)
[2016-10-08] MEDS: ALBUTEROL/IPRATROPIUM (NEB) 3 ML AMP HHN SCH ×2 (08:00→14:40)
[2016-10-08] MEDS: CEFTRIAXONE 1 GM/50 ML (PMX) 50 ML IVPB SCH (08:24)
[2016-10-08] MEDS: SENNA TAB PO SCH (08:25)
[2016-10-08] MEDS: HYDROCODONE/APAP (10/325) TAB PO PRN (08:25)
[2016-10-08] MEDS: predniSONE 10 MG TAB PO SCH (08:25)
[2016-10-08] MEDS: BENZONATATE 100 MG CAP PO SCH ×2 (08:26→13:24)
[2016-10-08] MEDS: LORATADINE/PSEUDOEPHED (SR) TAB PO SCH (08:26)
[2016-10-08] MEDS: FAMOTIDINE 20 MG TAB PO SCH (08:26)
[2016-10-08] MEDS: GUAIFENESIN LA 600 MG TABSR PO SCH (08:26)
[2016-10-08] MEDS: SALMETEROL/FLUTICASONE 250/50 INHA INH SCH (08:28)
[2016-10-08] MEDS: FLUTICASONE 0.05% 16 GM NAS SPRAY NASAL SCH (08:29)
[2016-10-08] MEDS: BUDESONIDE (NEB) 0.5MG/2ML AMP HHN SCH (09:00)
[2016-10-08] MEDS: AZITHROMYCIN 500MG/NS (PMX) 250 ML IV SCH (09:23)
--- NOTE | 2016-10-08 11:02 | PN ---
Date/Time of Note Date/Time of Note DATE: 10/08/16 TIME: 11:01 Assessment/Plan VTE Prophylaxis VTE Prophylaxis Intervention: SCD's Lines/Catheters IV [facility]from [facility]): Peripheral IV Urinary Cath still in place: No Assessment/Plan Chief Complaint/Hosp Course 1. Community-acquired pneumonia. Continue antibiotic therapy, improving. 2. Acute bronchitis with underlying sinusitis. Continue inhaled bronchodilators. Continue tapering dose of steroids. The patient is being followed by a clicking machine operator. 3. Nicotine use. Cessation advised. 4. Leukocytosis. Possibly secondary to steroid use. Resolved. 5. Recently diagnosed systemic lupus erythematosus. Monitor. 6. Fluid, electrolytes, and nutrition. Regular diet as tolerated. 7. Deep venous thrombosis prophylaxis. Bilateral sequential compression devices. 8. Gastrointestinal prophylaxis. Histamine 2 receptor blockers. Plan: Continue current management. Await on clearance from pulmonology before discharge. The case was discussed with Dr. Swan. Problems: Subjective 24 Hr Interval Summary Free Text/Dictation Complains of chest wall pain. Exam/Review of Systems Vital Signs Vitals Vital Signs Date Time Temp Pulse Resp B/P Pulse Ox O2 Delivery O2 Flow Rate FiO2 10/08/16 09:57 21 10/08/16 07:47 97.7 96 18 121/82 99 10/07/16 20:00 Room Air Intake and Output 10/07/16 10/07/16 10/08/16 15:00 23:00 07:00 Intake Total 300 ml 3200 ml 800 ml Balance 300 ml 3200 ml 800 ml Exam GENERAL: Well-developed, well-nourished female patient lying in bed in no apparent distress. HEENT: Head normocephalic and atraumatic. Eyes: Anicteric sclerae. Conjunctivae clear. ENT: Nasal septum is midline. Oral mucosa is moist. NECK: Supple. No JVD noticed. RESPIRATORY: Bilaterally diminished breath sounds. Occasional rhonchi heard. No use of accessory muscles of respiration. CARDIAC: Regular rate and rhythm. ABDOMEN: Soft, nontender, nondistended. Bowel sounds hypoactive in all 4 quadrants. GENITOURINARY: Deferred. EXTREMITIES: No cyanosis, no clubbing, no edema. Peripheral pulses palpable. NEUROLOGIC: The patient is awake, alert, and oriented. Cranial nerves are grossly intact. Results Result Diagram: 10/07/16 05 10/07/16 0545 Medications Medications Current Medications Ondansetron HCl 4 mg 4 mg Q6H PRN IV NAUSEA AND/OR VOMITING Last administered on 10/04/16 23:23; Admin Dose 4 MG; Start 09/27/16 at 06:30 Ceftriaxone Sodium 50 ml @ 100 mls/hr Q24H IVPB Last administered on 10/08/16 08:24; Admin Dose 100 MLS/HR; Start 09/27/16 at 08:00 Azithromycin (Zithromax 500mg/ NS (Pmx)) 250 ml @ 250 mls/hr Q24H IV Last administered on 10/08/16 09:23; Admin Dose 250 MLS/HR; Start 09/27/16 at 08:00 Ondansetron HCl (Zofran Tab) 4 mg Q6H PRN PO NAUSEA AND/OR VOMITING Last administered on 10/03/16 22:27; Admin Dose 4 MG; Start 09/27/16 at 08:00 Metoclopramide HCl (Reglan) 10 mg Q6H PRN IV NAUSEA AND/OR VOMITING; Start at 08:00 Acetaminophen (Tylenol Tab) 650 mg Q6H PRN PO PAIN LEVEL 1-3 OR FEVER; Start at 08:00 Famotidine (Pepcid) 20 mg Q12 PO Last administered on 10/08/16 08:26; Admin Dose 20 MG; Start 09/27/16 at 09:00 Guaifenesin/ Codeine Phosphate (Robitussin Ac Liquid Cup) 10 ml Q4H PRN PO COUGH Last administered on 10/02/16 02:28; Admin Dose 10 ML; Start 09/28/16 at 22:00 Salmeterol Xinafoate/ Fluticasone (Advair 250/50 Diskus) 1 inh BID INH Last administered on 10/08/16 08:28; Admin Dose 1 INH; Start 09/28/16 at 10:30 Morphine Sulfate 2 mg 2 mg Q4H PRN IV pain Last administered on 10/02/16 05:57 ; Admin Dose 2 MG; Start 09/28/16 at 10:00 Sodium Chloride (NS) 1,000 ml @ 75 mls/hr [id number] IV Last administered on 07:50; Admin Dose 75 MLS/HR; Start 09/28/16 at 10:00 Benzonatate (Tessalon) 200 mg TID PO Last administered on 10/08/16 08:26; Admin Dose 200 MG; Start 09/29/16 at 13:00 Senna (Senokot) 2 tab DAILY PO Last administered on 10/08/16 08:25; Admin Dose 2 TAB; Start 09/29/16 at 10:30 Magnesium Hydroxide (Milk Of Mag) 30 ml BID PRN PO CONSTIPATION; Start at 10:30 Guaifenesin (Mucinex) 600 mg BID PO Last administered on 10/08/16 08:26; Admin Dose 600 MG; Start 10/02/16 at 12:00 Loratadine/ Pseudoephedrine Sulfate (Claritin-D 12 Hr) 1 tab Q12 PO Last administered on 10/08/16 08:26; Admin Dose 1 TAB; Start 10/02/16 at 12:00 Acetaminophen/ Hydrocodone Bitart ([place] (10/325)) 1 tab Q4H PRN PO PAIN; Start 10/02/16 at 12:30 Acetaminophen/ Hydrocodone Bitart ([place] (10/325)) 2 tab Q4H PRN PO SEVERE PAIN Last administered on 10/08/16 08:25; Admin Dose 2 TAB; Start 10/02/16 at 12 :30 Prednisone (Prednisone) 30 mg DAILY PO Last administered on 10/08/16 08:25; Admin Dose 30 MG; Start 10/05/16 at 10:30 Fluticasone Propionate (Flonase 0.05% Nasal) 1 spray BID NASAL Last administered on 10/08/16 08:29; Admin Dose 1 SPRAY; Start 10/05/16 at 11:30 Alprazolam (Xanax) 1 mg BID PRN PO ANXIETY Last administered on 10/08/16 00:40 ; Admin Dose 1 MG; Start 10/05/16 at 14:00 EVERETT BLUE NP October 08, 2016 11:02
--- NOTE | 2016-10-08 12:39 | PDOCDIS ---
Discharge Instructions DIAGNOSIS Discharge Diagnosis: Community-acquired pneumonia. Acute bronchitis. CONDITION Patient Condition: Stable HOME CARE INSTRUCTIONS: Special Diet: Regular Diet FOLLOW UP/APPOINTMENTS Appointments Shaun Sykes MD Specialty: Internal Medicine Office Address: [address] [place], [place] [id number] Office OTHER ORDERS: Other Orders: 1. Take medications as per prescription. 2. Regular diet as tolerated. 3. Follow-up with your primary care physician 1 week. If you do not have a primary care physician, please call Dr. Shaun Sykes's office. 4. Avoid tobacco use. 5. Resume activities as tolerated. 6. Please arrange for CT of the sinuses to be done with your PCP. SCHOOL/WORK RELEASE May return to School/Work on: October 11, 2016 May return to School/Work with: No Restrictions EVERETT BLUE NP October 08, 2016 12:39
[2016-10-08] MEDS ORDERED: FLUT16SP17 NASAL (12:42)
[2016-10-08] MEDS ORDERED: PRED10TA PO (12:42)
[2016-10-08] MEDS ORDERED: BUDE0.5A HHN (12:42)
[2016-10-08] MEDS ORDERED: ADV25050 INH (12:42)
[2016-10-08] MEDS ORDERED: LORA-186 PO (12:42)
[2016-10-08] MEDS ORDERED: ALBU8.5H3 INH (12:43)
--- NOTE | 2016-10-08 14:33 | DS ---
DATE OF ADMISSION: 09/27/2016 DATE OF DISCHARGE: 10/08/2016 FINAL DIAGNOSES: 1. Community-acquired pneumonia. 2. Acute bronchitis with underlying sinusitis. 3. Nicotine use. 4. Systemic lupus erythematosus. 5. Anxiety disorder. CONSULTANTS: 1. Dr. Coleman Lagunas, Pulmonary. 2. Dr. Eliel Hernandez, Pulmonary. HOSPITAL COURSE: This is a 36-year-old female with recently diagnosed systemic lupus erythematosus and a recent splenic laceration in 2016, who went to an outside facility because of dyspnea, cough, and sputum production. The patient's x-ray showed evidence of pneumonia. The patient was transferred to [facility] because of insurance reasons. The patient was admitted to inpatient setting. The patient was started on empiric antibiotics. Pancultures were ordered. The patient was noted to have significant bronchospasms with wheezing. Hence, a pulmonology consult was called on this patient. The patient's pneumonia responded well to antibiotic therapy with a repeat chest x-ray showing almost complete clearance of the infiltrates. However, the patient continued to have significant bronchospasms that required steroids. Nevertheless, the patient was having some sensitivity to steroids that required low-dose steroids over a prolonged time. The patient also has underlying acute sinusitis with postnasal drip that was causing her significant cough with bronchospasms. Hence, the patient was started on antihistamine therapy along with inhaled corticosteroids with improvement in the patient's symptoms. The patient is a current nicotine user. The patient was advised on quitting the use of nicotine and the importance of staying away from nicotine. The patient' s sputum culture showed normal respiratory moy. The patient had a slow response to therapy that prolonged the patient's hospital course. Pulmonary was following the patient throughout the patient's hospital course. The patient also had underlying acute bronchitis symptoms that were treated with appropriate antibiotics. The patient had a prolonged hospital course because of the patient's slow progress in the clinical status. The patient was cleared by consultants to be discharged home. DISCHARGE DISPOSITION/PLAN: The patient will be discharged home today. The patient was instructed to take medications as per prescription. The patient was instructed to take a regular diet as tolerated. The patient was instructed to follow up with her primary care physician in 1 week and if she does not have a primary care physician, to please call Dr. Shaun Sykes's office. The patient was instructed to avoid tobacco use and she was instructed to resume activities as tolerated. The patient was instructed that she may return to work on 2016 with no restrictions. The patient verbalized understanding of her discharge instructions. CONDITION AT DISCHARGE: Stable. DISCHARGE MEDICATIONS: 1. ProAir HFA 2 puffs inhaled q.4 hours p.r.n. dyspnea. 2. Pulmicort 0.5 mg inhaled 2 puffs b.i.d. 3. Fluticasone 50 mcg per spray, 1 spray to both nostrils b.i.d. 4. Loratadine 10 mg p.o. daily. 5. Prednisone 30 mg p.o. daily. 6. Advair Diskus 250/50 one inhalation b.i.d. 7. Xanax 1 mg p.o. b.i.d. p.r.n. anxiety. 8. [place] 5/325 1 tab p.o. q6h p.r.n. pain. PERTINENT LABORATORY AND DIAGNOSTIC DATA AND PROCEDURES: 1. Chest x-ray upon admission. Mild right perihilar patchy consolidation. 2. Repeat chest x-ray on 10/01/2016. No acute cardiopulmonary disease with resolution of the right perihilar patchy airspace disease. 3. Latest CBC: WBC 10.1, hemoglobin 11.2, hematocrit 34.0, platelet count 524. 4. Latest BMP: Sodium 134, potassium 3.5, chloride 103, carbon dioxide 26, anion gap 9, BUN 9, creatinine 0.55, glucose 83, calcium 8.3, magnesium 1.9. 5. Hemoglobin A1c 5.2. 6. Fasting lipid panel: Triglycerides 48, total cholesterol 83, LDL 44, HDL 29. At this time, I would like to thank all the consultants for seeing the patient and providing clinical recommendations. The case and management of this patient was fully discussed with Dr. Walters. Approximately 35 minutes was spent on coordinating the discharge on this patient. EVERETT WALTERS MD, AM/ELIER Conf#: [id number] DID#: [id number] MTDD
[2016-10-08] MEDS ORDERED: HYDR-906 PO (14:38)
[2016-10-08] MEDS ORDERED: ALPR1TAB7 PO (14:38)
--- NOTE | 2016-10-08 16:40 | RADRPT ---
Vent Rate: 93 bpm RR Interval: 0 msec TN Interval: 116 msec QRS Duration: 82 msec QT Interval: 336 msec QTC Interval: 417 msec P-R-T [place]: 53 - 46 - 51 degrees Normal sinus rhythm Normal ECG Electronically Signed By: Logan Gonzalez [id number]
== END 2016-10-08 16:00 | disposition home or self-care (01) | DRG 190 ==
LOC: MS2 05:34
PROVIDERS: ADMIT Family Medicine; ATTEND Family Medicine
DX: J44.0 Chronic obstructive pulmonary disease with (acute) lower respiratory infection (principal); J18.9 Pneumonia, unspecified organism; B44.9 Aspergillosis, unspecified; M32.9 Systemic lupus erythematosus, unspecified; J20.9 Acute bronchitis, unspecified; F17.200 Nicotine dependence, unspecified, uncomplicated; F41.9 Anxiety disorder, unspecified; J32.9 Chronic sinusitis, unspecified; J01.91 Acute recurrent sinusitis, unspecified
CPT/HCPCS: 71010; 80048; 80053; 80061; 80076; 80307; 82785; 83036; 83605; 83735; 84100; 84439; 84443; 84703; 85025; 86606; 86635; 87070; 87081; 93005; 94640; 94664; J0456; J0696; J1885; J2270; J2405; J2920; J7030; J7512

== ENCOUNTER 2016-10-12 13:58 | Outpatient (CLI) | payer OTHER ==
[~2016-10-12] VITALS: Ht 180.3 cm; Wt 80.9 kg
[~2016-10-12 13:58] MED LIST: ADV25050 INH; ALBU8.5H3 INH; ALPR1TAB7 PO; BUDE0.5A HHN; FLUT16SP17 NASAL; HYDR-906 PO; LORA-186 PO; PRED10TA PO
[2016-10-12 14:05] VITALS: BP 137/77; PULSE 113; RESP 18; Ht 180.3 cm; Wt 80.9 kg
--- NOTE | 2016-10-12 15:07 | PN ---
Date/Time of Note Date/Time of Note DATE: 10/12/16 TIME: 15:02 Outpatient Progress Note Chief Complaint Pneumonia/lupus/anxiety/PUD HPI Pneumonia/patient still has minimal cough, no fever chill, hemoptysis, slight chest discomfort on coughing, Lupus/patient filled weakness and tiredness, slight joint discomfort, multiple nonspecific complaint, Anxiety/patient anxious and nervous, PUD/patient has epigastric discomfort, heartburn, patient was on Prilosec in the hospital, patient felt better, Review of Systems Const: No Fever, no chills, no Wt. loss, no Fatigue, normal appetite, no diaphoresis. Eyes: No pain, no discharge, no redness, no visual change, no foreign body. ENT: No pain, no bleeding, no congestion, no sore throat, no dysphagia, no discharge or rhinitis. Lymph: No adenopathy, no tender nodes, no lymphedema. Resp: Minimal SOB, on exertion, mild cough, no sputum, no wheezing, no chest pain. CV: No chest pain, no palpitaions, no MASTERS, no PND, no edema. GI: Normal appetite, epigastric pain and heartburn,, no nausea, no vomiting, no diarrhea, no blood, no constipation. : No frequency, no urgency, no dysuria, no hematuria, no flank pain, no discharge, no bleeding. Musc: No bone/joint pain, no back pain, no neck pain, no knee pain, no restricted ROM. Skin: No rash, no skin lesions, no erythema, no laceration, no bruising, no pruritus. Neuro: No LYNN, no dizziness, no syncope, no seizure, no focal-weakness. Endo: No polyuria, no polydypsia, no dry-skin, no temp-intolerance. Psych: No hallucinations, no depression, no anxiety, no suicidal ideation. Ext: No edema, no pain, no ulcer, no weakness. Physical Exam Vital Signs Date Time Temp Pulse Resp B/P Pulse Ox O2 Delivery O2 Flow Rate FiO2 10/12/16 14:05 98.2 113 18 137/77 98 Room Air General Appearance: A 36 year-old female very few who appears well-developed, well-nourished, in no acute distress. HEENT: Head normocephalic, atraumatic. Pupils equal, round, reactive to light and accommodate. Sclerae are no jaundice. Nasal turbinates pink without erythema or nasal discharge. Mucous membranes pink and moist without lesions. Oropharynx clear without any exudate or discharge. NECK: Supple. Trachea midline, No thyromegaly, No cervical lymphadenopathy, No mass, No carotid bruits, No JVD, Carotid pulses 2+ bilaterally. PULMONARY: Clear to auscultaion bilaterally, No retractions, Chest expansion symmetric bilaterally, no rales, very few ronchi, no dulness on percussion. CARDIAC: Normal SI and S2, Regular rate and rythm, no murmur, gallop, or rub. GASTROINTESTINAL: Abdomen is soft, non-tender, Non Rigid, No distention, Positive bowel sounds x4 quadrants, Liver normal. SKIN: Warm, dry, no rash, no bruise, no echmosis. EXTREMITIES: Bilateral lower extremities normal, no edema, no phlabitus, pulse palpable, no contracture. MUSCULOSKELETAL: Spine Normal, Non-tender, Normal range of motion, No swelling, no deformity, no clubbing, or cyanosis, the patient has no edema to bilateral lower extremities, dorsalis pedis pulses palpable bilaterally. NEUROLOGIC: The patient is awake, alert, oriented, responding to yes/no questions appropriately, moving all extremities, cranial nerve intact, normal strenght, normal power, normal coordination, normal gait. Allergies Coded Allergies: nut - unspecified (Verified Allergy, Unknown, 09/30/16) PMH Pneumonia/lupus/anxiety/heartburn/sinus problems/smoking Social Hx Patient still smokes, no drinking, no drugs, Family Hx Patient has family history of lupus, Assessment/Plan Impression Pneumonitis resolving/lupus/anxiety/PUD Plan Discussion about lupus and pneumonia, patient education done about the disease, Patient advised to stop smoking again, Patient encouraged to follow the primary care physician, Patient has heartburn, so we will start Prilosec or equivalent 40 mg p.o. daily #30, Medications Home Meds Active Scripts Hydrocodone/Acetaminophen ([place] 5-325 Tablet) 1 Each Tablet, 1 EACH PO Q6H for ANXIETY, #20 TAB Prov:EVERETT BLUE METAL MOVER 10/08/16 Alprazolam* (Alprazolam*) 1 Mg Tablet, 1 MG PO BID Y for ANXIETY, #20 TAB Prov:EVERETT BLUE METAL MOVER 10/08/16 Albuterol Sulfate* (Proair HFA*) 8.5 Gm Hfa.aer.ad, 2 PUFF INH Q4 for SHORTNESS OF BREATH, #1 INHALER Prov:EVERETT BLUE NP 10/08/16 Loratadine* (Claritin*) 10 Mg Tablet, 10 MG PO DAILY for 14 Days, TAB Prov:EVERETT BLUE NP 10/08/16 Prednisone* (Prednisone*) 10 Mg Tab, 30 MG PO DAILY for 2 Days, TAB Prednisone 30 mg p.o. daily 2 days, then Prednisone 10 mg p.o. daily 2 days, then Prednisone 5 mg p.o. daily 2 days. Prov:EVERETT BLUE NP 10/08/16 Fluticasone Propionate* (Fluticasone Propionate* Nasal) 50 Mcg/[place] - 16 Gm [place].susp, 1 SPRAY NASAL BID for 30 Days Prov:EVERETT BLUE NP 10/08/16 Salmeterol Xinaf/Fluticasone* (Advair*) 250-50 Diskus Inhaler, 1 INH INH BID for 30 Days Prov:EVERETT BLUE NP 10/08/16 Budesonide* (Budesonide*) 0.5 Mg/2 Ml Ampul.neb, 0.5 MG HHN BID RESP THERAPY for 30 Days Prov:EVERETT BLUE NP 10/08/16 CHEMO SHARMA MD October 12, 2016 15:07
== END 2016-10-12 16:30 | disposition home or self-care (01) ==
LOC: DCC 13:58
PROVIDERS: ATTEND Internal Medicine
DX: J18.9 Pneumonia, unspecified organism (principal); M32.9 Systemic lupus erythematosus, unspecified; F41.9 Anxiety disorder, unspecified

== ENCOUNTER 2016-10-26 14:04 | Outpatient (CLI) | payer OTHER ==
[~2016-10-26] VITALS: Ht 180.3 cm; Wt 80.9 kg
[2016-10-26 14:13] VITALS: Ht 180.3 cm; Wt 80.9 kg
[2016-10-26 14:14] VITALS: BP 128/77; PULSE 112; RESP 16
--- NOTE | 2016-10-26 16:38 | PN ---
Date/Time of Note Date/Time of Note DATE: 10/26/16 TIME: 16:31 Outpatient Progress Note Chief Complaint Palpitations/lupus/PUD/anxiety HPI Palpitations/patient has off-and-on palpitation, and some time 15-20 times times a day, last for a few seconds, no dizziness, no lightheadedness, no syncope, associated with coughing, Lupus/no rash, no joint pain, no kidney problem, PUD/no nausea or vomiting, no heartburn, feeling much better, Anxiety/patient still has anxiety, patient had a history of depression, patient used to take medication, patient off the medication, patient has lost 100 pounds in last 1 year, after she stopped psych medication, Review of Systems Const: No Fever, no chills, no Wt. loss, no Fatigue, normal appetite, no diaphoresis. Eyes: No pain, no discharge, no redness, no visual change, no foreign body. ENT: No pain, no bleeding, no congestion, no sore throat, no dysphagia, no discharge or rhinitis. Lymph: No adenopathy, no tender nodes, no lymphedema. Resp: No SOB, no cough, no sputum, no wheezing, no chest pain. CV: No chest pain, 15-20 times palpitaions, lasting for a few seconds, no associated dizziness, or lightheadedness, no MASTERS, no PND, no edema. GI: Normal appetite, no pain, no nausea, no vomiting, no diarrhea, no blood, no constipation. : No frequency, no urgency, no dysuria, no hematuria, no flank pain, no discharge, no bleeding. Musc: No bone/joint pain, no back pain, no neck pain, no knee pain, no restricted ROM. Skin: No rash, no skin lesions, no erythema, no laceration, no bruising, no pruritus. Neuro: No LYNN, no dizziness, no syncope, no seizure, no focal-weakness. Endo: No polyuria, no polydypsia, no dry-skin, no temp-intolerance. Psych: No hallucinations, no depression, no anxiety, no suicidal ideation. Ext: No edema, no pain, no ulcer, no weakness. Physical Exam Vital Signs Date Time Temp Pulse Resp B/P Pulse Ox O2 Delivery O2 Flow Rate FiO2 10/26/16 14:14 97.6 112 16 128/77 99 Room Air General Appearance: A 36 year-old female who appears well-developed, well- nourished, in no acute distress. HEENT: Head normocephalic, atraumatic. Pupils equal, round, reactive to light and accommodate. Sclerae are no jaundice. Nasal turbinates pink without erythema or nasal discharge. Mucous membranes pink and moist without lesions. Oropharynx clear without any exudate or discharge. NECK: Supple. Trachea midline, No thyromegaly, No cervical lymphadenopathy, No mass, No carotid bruits, No JVD, Carotid pulses 2+ bilaterally. PULMONARY: Clear to auscultaion bilaterally, No retractions, Chest expansion symmetric bilaterally, no rales, no ronchi, no dulness on percussion. CARDIAC: Normal SI and S2, Regular rate and rythm, no murmur, gallop, or rub patient occasionally feels skipped beats, GASTROINTESTINAL: Abdomen is soft, non-tender, Non Rigid, No distention, Positive bowel sounds x4 quadrants, Liver normal. SKIN: Warm, dry, no rash, no bruise, no echmosis. EXTREMITIES: Bilateral lower extremities normal, no edema, no phlabitus, pulse palpable, no contracture. MUSCULOSKELETAL: Spine Normal, Non-tender, Normal range of motion, No swelling, no deformity, no clubbing, or cyanosis, the patient has no edema to bilateral lower extremities, dorsalis pedis pulses palpable bilaterally. NEUROLOGIC: The patient is awake, alert, oriented, responding to yes/no questions appropriately, moving all extremities, cranial nerve intact, normal strenght, normal power, normal coordination, normal gait. Allergies Coded Allergies: nut - unspecified (Verified Allergy, Unknown, 09/30/16) PMH No change Social Hx No change Family Hx No change Assessment/Plan Impression Palpitations/lupus/PUD/anxiety Plan Patient education done about a her medical disease, patient has off-and-on palpitation, patient was prescribed propranolol in the past, and patient has Raynaud's phenomena, Patient has significant frequent amount of palpitation, and patient is concerned , while patient was in the hospital, patient did not have much arrhythmias, or information from the patient, Patient heart rate is slightly elevated, and patient has that problem for a while, today's heart rate is 120, Will start atenolol 12.5 mg p.o. daily, patient advised to check the pulse before medication, hold for heart rate below 60, or any side effects, We will monitor the effect and rate of palpitation, and patient to follow with the primary care physician, if any side effects or if no improvement to discontinue medication, If palpitations persist primary care follow up and workup by primary care physician, Patient also takes albuterol, that might be another reason for palpitation, if he needs to change inhaler can be changed to Xopenex, Medications Home Meds Active Scripts Alprazolam* (Alprazolam*) 1 Mg Tablet, 1 MG PO BID Y for ANXIETY, #20 TAB Prov:EVERETT BLUE NP 10/08/16 Albuterol Sulfate* (Proair HFA*) 8.5 Gm Hfa.aer.ad, 2 PUFF INH Q4 for SHORTNESS OF BREATH, #1 INHALER Prov:EVERETT BLUE NP 10/08/16 Loratadine* (Claritin*) 10 Mg Tablet, 10 MG PO DAILY for 14 Days, TAB Prov:EVERETT BLUE NP 10/08/16 Fluticasone Propionate* (Fluticasone Propionate* Nasal) 50 Mcg/[place] - 16 Gm [place].susp, 1 SPRAY NASAL BID for 30 Days Prov:EVERETT BLUE NP 10/08/16 Salmeterol Xinaf/Fluticasone* (Advair*) 250-50 Diskus Inhaler, 1 INH INH BID for 30 Days Prov:EVERETT BLUE NP 10/08/16 Budesonide* (Budesonide*) 0.5 Mg/2 Ml Ampul.neb, 0.5 MG HHN BID RESP THERAPY for 30 Days Prov:EVERETT BLUE NP 10/08/16 Discontinued Scripts Hydrocodone/Acetaminophen ([place] 5-325 Tablet) 1 Each Tablet, 1 EACH PO Q6H for ANXIETY, #20 TAB Prov:EVERETT BLUE NP 10/08/16 Prednisone* (Prednisone*) 10 Mg Tab, 30 MG PO DAILY for 2 Days, TAB Prednisone 30 mg p.o. daily 2 days, then Prednisone 10 mg p.o. daily 2 days, then Prednisone 5 mg p.o. daily 2 days. Prov:EVERETT BLUE NP 10/08/16 CHEMO SHARMA MD October 26, 2016 16:38
[2016-10-27] MEDS ORDERED: HYDR-902 PO (16:58)
[2016-10-27] MEDS ORDERED: OMEP40CA6 PO (16:59)
== END 2016-10-26 16:44 | disposition home or self-care (01) ==
LOC: DCC 14:04
PROVIDERS: ATTEND Internal Medicine
DX: R00.2 Palpitations (principal); M32.9 Systemic lupus erythematosus, unspecified; K27.9 Peptic ulcer, site unspecified, unspecified as acute or chronic, without hemorrhage or perforation; F41.9 Anxiety disorder, unspecified

== ENCOUNTER 2016-10-27 15:14 | Inpatient (IN) | payer OTHER ==
[~2016-10-27] VITALS: Ht 177.8 cm; Wt 81.4 kg
[~2016-10-27 15:14] MED LIST changes: -HYDR-906 PO; -PRED10TA PO
[2016-10-27] MEDS ORDERED: HYDR-902 PO (16:58)
[2016-10-27 16:59] VITALS: Ht 177.8 cm; Wt 81.4 kg
[2016-10-27] MEDS ORDERED: OMEP40CA6 PO (16:59)
[2016-10-27 17:04] VITALS: BP 123/64; PULSE 96; RESP 20
[2016-10-27] MEDS: ONDANSETRON 4 MG INJ IV PRN (18:39)
[2016-10-27] MEDS: morphine 4 MG/ML VIAL IV PRN (18:41)
[2016-10-27] MEDS ORDERED: HYDROCODONE/APAP (5/325) TAB PO PRN (19:00)
[2016-10-27] MEDS ORDERED: ACETAMINOPHEN 325 MG TAB PO PRN (19:00)
[2016-10-27] MEDS ORDERED: NACL 0.9% 3 ML SYG IV SCH (19:00)
[2016-10-27] MEDS ORDERED: ALBUTEROL/IPRATROPIUM (NEB) 3 ML AMP HHN PRN (19:00)
[2016-10-27 20:03] VITALS: BP 123/78; RESP 16
[2016-10-27 21:00] VITALS: PULSE 97
[2016-10-27] MEDS: ALPRAZOLAM 1 MG TAB PO PRN (21:44)
[2016-10-27] MEDS: DOCUSATE SODIUM 100 MG CAP PO SCH (21:44)
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
[2016-10-28 03:30] VITALS: PULSE 88
[2016-10-28] MEDS: morphine 4 MG/ML VIAL IV PRN ×5 (03:31→21:39)
[2016-10-28] MEDS: ONDANSETRON 4 MG INJ IV PRN ×3 (03:31→18:17)
[2016-10-28] MEDS: DOCUSATE SODIUM 100 MG CAP PO SCH ×2 (06:04→18:17)
[2016-10-28 06:20] LABS: ADD SCAN DIFF NO
[2016-10-28 06:28] LABS: BASOPHILS % 0.2 % (0.0-2.0); EOSINOPHILS # 0.2 10^3/ul (0.0-0.5); EOSINOPHILS % 3.4 % (0.0-7.0); HEMATOCRIT 35.9 % (37.0-47.0); HEMOGLOBIN 11.9 g/dl (12.0-16.0); LYMPHOCYTES # 1.3 10^3/ul (0.8-2.9); LYMPHOCYTES % 26.8 % (15.0-51.0); MEAN CORPUSCULAR HEMOGLOBIN 29.6 pg (29.0-33.0); MEAN CORPUSCULAR HGB CONC 33.1 g/dl (32.0-37.0); MEAN CORPUSCULAR VOLUME 89.3 fl (82.0-101.0); MEAN PLATELET VOLUME 8.8 fl (7.4-10.4); MONOCYTE # 0.6 10^3/ul (0.3-0.9); MONOCYTES % 12.1 % (0.0-11.0); NEUTROPHIL # 2.7 10^3/ul (1.6-7.5); NEUTROPHILS % 57.3 % (39.0-77.0); PLATELET COUNT 285 10^3/UL (140-415); RED BLOOD COUNT 4.02 10^6/ul (4.20-5.40); RED CELL DISTRIBUTION WIDTH 14.3 % (11.5-14.5); WHITE BLOOD COUNT 4.7 10^3/ul (4.8-10.8)
[2016-10-28 06:54] LABS: CALCIUM 8.6 mg/dl (8.4-10.2); CREATININE 0.66 mg/dl (0.44-1.00); MAGNESIUM 1.9 mg/dl (1.7-2.5); PHOSPHORUS 3.6 mg/dl (2.5-4.9); POTASSIUM 3.8 mmol/L (3.5-5.1)
[2016-10-28 07:31] VITALS: BP 108/66; RESP 19
[2016-10-28] MEDS: LORATADINE 10 MG TAB PO SCH (09:27)
[2016-10-28 09:30] VITALS: PULSE 98
[2016-10-28] MEDS: ALPRAZOLAM 1 MG TAB PO PRN ×2 (09:47→20:34)
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
[2016-10-28 20:07] VITALS: BP 118/60; RESP 18
[2016-10-29] MEDS: ONDANSETRON 4 MG INJ IV PRN (05:17)
[2016-10-29] MEDS: DOCUSATE SODIUM 100 MG CAP PO SCH ×2 (05:17→07:00)
[2016-10-29] MEDS: morphine 4 MG/ML VIAL IV PRN ×2 (05:18→09:41)
[2016-10-29 07:58] VITALS: BP 112/67; RESP 18
[2016-10-29] MEDS: LORATADINE 10 MG TAB PO SCH (08:04)
--- NOTE | 2016-10-29 09:51 | PDOCDIS ---
Discharge Instructions CONDITION Patient Condition: Good HOME CARE INSTRUCTIONS: Diet Instructions: Regular ACTIVITY: Activity Restrictions: No Restrictions FOLLOW UP/APPOINTMENTS Appointments F/U WITH A PCP IN 1-2 WEEKS YASMIN ANGULO October 29, 2016 09:50
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
== END 2016-10-29 11:05 | disposition home or self-care (01) | DRG 156 ==
LOC: MS2 16:19
PROVIDERS: ADMIT Internal Medicine; ATTEND Internal Medicine
DX: S02.2XXA Fracture of nasal bones, initial encounter for closed fracture (principal); F41.9 Anxiety disorder, unspecified; Y04.0XXA Assault by unarmed brawl or fight, initial encounter; Y93.01 Activity, walking, marching and hiking; Y92.480 Sidewalk as the place of occurrence of the external cause; Y99.8 Other external cause status; R00.0 Tachycardia, unspecified; L93.0 Discoid lupus erythematosus; F17.210 Nicotine dependence, cigarettes, uncomplicated; Z59.0 Homelessness
CPT/HCPCS: 80048; 83735; 84100; 85025; 87081; J2270; J2405

== ENCOUNTER 2016-11-04 14:28 | Outpatient (CLI) | payer OTHER ==
[~2016-11-04] VITALS: Ht 177.8 cm; Wt 78.6 kg
[~2016-11-04 14:28] MED LIST changes: +HYDR-902 PO; +OMEP40CA6 PO
[2016-11-04 14:40] VITALS: BP 154/89; PULSE 109; RESP 18; Ht 177.8 cm; Wt 78.6 kg
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
== END 2016-11-04 17:00 | disposition home or self-care (01) ==
LOC: DCC 14:28
PROVIDERS: ATTEND Internal Medicine
DX: R06.02 Shortness of breath (principal); F41.9 Anxiety disorder, unspecified; M32.9 Systemic lupus erythematosus, unspecified; S22.39XD Fracture of one rib, unspecified side, subsequent encounter for fracture with routine healing; S02.2XXD Fracture of nasal bones, subsequent encounter for fracture with routine healing; S36.039D Unspecified laceration of spleen, subsequent encounter; Y09 Assault by unspecified means

== ENCOUNTER 2016-11-18 11:34 | Outpatient (CLI) | payer OTHER ==
[~2016-11-18] VITALS: Ht 177.8 cm; Wt 82.3 kg
[2016-11-18 11:40] VITALS: BP 110/58; PULSE 103; RESP 18; Ht 177.8 cm; Wt 82.3 kg
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
== END 2016-11-18 16:41 | disposition home or self-care (01) ==
LOC: DCC 11:34
PROVIDERS: ATTEND Internal Medicine
DX: S02.2XXD Fracture of nasal bones, subsequent encounter for fracture with routine healing (principal); S22.32XD Fracture of one rib, left side, subsequent encounter for fracture with routine healing; S36.039D Unspecified laceration of spleen, subsequent encounter; Y09 Assault by unspecified means; H54.7 Unspecified visual loss; M32.9 Systemic lupus erythematosus, unspecified; F32.9 Major depressive disorder, single episode, unspecified

== ENCOUNTER 2017-09-13 14:19 | Emergency (ER) | END 2017-09-13 18:22 | disposition home or self-care (01) ==